=== PATIENT | male | born 1940 | race Caucasian/White ===

== ENCOUNTER 2016-05-29 06:16 | Outpatient (CLI) | payer MEDICARE, OTHER ==
[~2016-05-29] VITALS: Ht 185.4 cm; Wt 99.2 kg
[~2016-05-29 06:16] MED LIST: ASP325TEC PO; ASP81TEC PO; ATEN25TA PO; ATOR40TA70 PO; BUPR-168 PO; CLOP75TA69 PO; DOCU100T2 PO; FENO200C PO; FERR240T9 PO; HYDR1TAB66 PO; ISM30TCR PO; ISM60TCR PO; LEVO25TA5 PO; LIPA1CAP2 PO; LVT.15T PO; MULT1CAP27 PO; NTR.4SL SL; PANT20TA3 PO; RABE20TA PO; RANO10003 PO; RANO500T2 PO; SIMV40TA4 PO; UBID100C17 PO; [UNRECOGNIZED DRUG - CODE] PO; levothyroxine PO
--- OUTSIDE RECORDS SUMMARY | 2016-05-29 06:20 | XMS REPORT | Continuity of Care Document ---
Author Author [facility] Organization [facility] Address Unknown Phone Unavailable Care Team Providers Care Sales Applications Engineer Name Role Phone Self, Referral PCP Unavailable Source Comments Some departments are not documenting in the electronic medical record. If you do not see the information that you expected, contact Release of Information in the Health Information Management department at [phone] for further assistance in locating additional records.[facility] Active Allergies and Adverse Reactions No Known Allergies Current Medications Prescription Sig. Disp. Refills Start End Date Status Date isosorbide mononitrate SR Take 60 mg by mouth every Active (IMDUR) 60 mg tablet morning. atenolol (TENORMIN) 25 mg Take 25 mg by mouth Active tablet daily. RABEprazole DR (+) Take 20 mg by mouth Active (ACIPHEX) 20 mg tablet daily. ranolazine (RANEXA) 500 Take 500 mg by mouth Active mg twice daily. levothyroxine (SYNTHROID) Take 150 mcg by mouth Active 150 mcg tablet daily. simvastatin (ZOCOR) 40 mg Take 40 mg by mouth at Active tablet bedtime daily. fenofibrate micronized(+) Take 200 mg by mouth Active (TRICOR) 200 mg capsule every morning. pancrelipase (CREON 5) Take 2 Caps by mouth Active 124 mg (5,000- 18.7K-16K three times daily with unit) CpDR meals. And at bedtime nitroglycerin (NITROSTAT) Place 0.4 mg under tongue Active 0.4 mg tablet every 5 minutes as needed. up to 3 times. If having chest pain after 3rd dose call 911 or go to nearest ER. MULTIVITAMIN PO Take 1 Tab by mouth Active daily. [place]-3 Fatty Take 1 Cap by mouth Active Acids-Vitamin E (FISH daily. OIL) 1,000 mg cap aspirin EC 81 mg tablet Take 1 Tab by mouth 90 Tab 3 07/09/19 Active daily. 13 clopiDOGrel (PLAVIX) 75 Take 1 Tab by mouth 30 Tab 11 07/09/19 Active mg tablet daily. 13 varenicline (CHANTIX Take 0.5 mg by mouth 60 Tab 0 07/09/19 Active STARTING MONTH BOX) 0.5 daily for 3 days, then 13 (11)-1 (42) mg tablet increase to 0.5 mg by mouth twice daily for 4 days, then increase to 1 mg by mouth twice daily varenicline (CHANTIX Take 1 Tab by mouth twice 180 Tab 0 07/09/19 Active CONTINUING MONTH BOX) 1 daily. 13 mg tablet Active Problems Problem Noted Date Anginal pain (HCC) 08/10/2012 S/P CABG (coronary artery bypass graft) 08/10/2012 Overview: CABG x 4: DE PAZ-LAD, SVG-DIAG, SVG-OM1 and OM2. Tobacco abuse 08/10/2012 HTN (hypertension) 08/10/2012 Dyslipidemia 08/10/2012 CAD (coronary artery disease) Overview: CABG x 4: DE PAZ-LAD, SVG-DIAG, SVG-OM1 and OM2. 2010- Cardiac catheterization: 2 bypass grafts occluded. 05/26/12- Cardiac catheterization (Via Jessica): Totally occluded mid circumflex artery, First OM, second OM & RCA. Totally occluded proximal LAD excellent flow through the LAD system via the DE PAZ-LAD and a patent vein graft to the circumflex to the diagonal artery. Patent stent in the mid vein graft. EF 50%. 08/10/12: Unsuccessful attempt to open AUTOMATIC LEHR OPERATOR of CFX by Dr. Yuan Tobacco use disorder Hypertension Hyperlipidemia Social History Tobacco Use Types Packs/Day Years Used Date Current Every Day Smoker Cigarettes Last Filed Vital Signs Vital Sign Reading Time Taken Blood Pressure 146/73 08/10/2012 8:15 PM CDT Pulse 48 08/10/2012 8:00 PM CDT Temperature 36.5 C (97.7 F) 08/10/2012 8:15 PM CDT Respiratory Rate - - Height 1.854 m (6' 1") 08/10/2012 8:56 AM CDT Weight 99.7 kg (219 lb 12.8 oz) 08/10/2012 8:56 AM CDT Body Mass Index 29.01 08/10/2012 8:56 AM CDT Oxygen Saturation 97% 08/10/2012 8:15 PM CDT Plan of Care Health Maintenance Due Date Last Done Comments Physical (Comprehensive) 10/14/1947 Exam Pertussis Vaccine 10[birth year]14/1951 Tetanus Vaccine 1957 Colorectal Cancer 1990 Screening Shingles Vaccine 2000 Prevnar/Pneumovax (#1) 2005 Influenza Vaccine 01/03/2016 Results from Last 3 Months Not on file
[2016-05-29] MEDS ORDERED: PANT40TA3 PO (13:56)
[2016-05-29] MEDS ORDERED: ATOR80TA76 PO (13:56)
[2016-05-29] MEDS ORDERED: SUCR1TAB36 PO (13:56)
[2016-05-29] MEDS ORDERED: ATEN50TA PO (13:56)
[2016-05-29] MEDS ORDERED: RANO10003 PO (13:56)
== END 2016-05-29 14:00 ==
LOC: PREOP 06:16
PROVIDERS: ATTEND Surgery
DX: Z01.818 Encounter for other preprocedural examination (principal); K21.9 Gastro-esophageal reflux disease without esophagitis

== ENCOUNTER 2016-06-02 10:44 | Day surgery (SDC) | payer MEDICARE, OTHER ==
[~2016-06-02] VITALS: Ht 185.4 cm; Wt 99.2 kg
[~2016-06-02 10:44] MED LIST changes: +ATEN50TA PO; +ATOR80TA76 PO; +PANT40TA3 PO; +SUCR1TAB36 PO
--- OUTSIDE RECORDS SUMMARY | 2016-06-02 10:48 | XMS REPORT | Continuity of Care Document ---
Author Author [facility] Organization [facility] Address Unknown Phone Unavailable Care Team Providers Care Cargo Tank Mechanic Name Role Phone Self, Referral PCP Unavailable Source Comments Some departments are not documenting in the electronic medical record. If you do not see the information that you expected, contact Release of Information in the Health Information Management department at [phone] for further assistance in locating additional records.[facility] Active Allergies and Adverse Reactions No Known [...] Take 1 Tab by mouth Active daily. [place]-3 Fatty Take 1 Cap by mouth Active [...] EF 50%. 08/10/12: Unsuccessful attempt to open FORESTRY PILOT of CFX by Dr. Yuan Tobacco use [...]
--- OUTSIDE RECORDS SUMMARY | 2016-06-02 10:48 | XMS REPORT | Continuity of Care Document ---
Author Author [facility] Organization [facility] Address Unknown Phone Unavailable Care Team Providers Care Camera Supervisor Name Role Phone Self, Referral PCP Unavailable Source Comments Some departments are not documenting in the electronic medical record. If you do not see the information that you expected, contact Release of Information in the Health Information Management department at [phone] for further assistance in locating additional records.[facility] Active Allergies and Adverse Reactions [...] Take 1 Tab by mouth Active daily. [place]-3 Fatty Take 1 Cap by mouth Active [...] EF 50%. 08/10/12: Unsuccessful attempt to open MECHANIC MARINE ENGINE of CFX by Dr. Yuan Tobacco use [...]
[2016-06-02 10:50] VITALS: BP 169/90
[2016-06-02] MEDS ORDERED: NALOXONE 0.4 MG/ML 1 ML (NARCAN) VIAL IVP PRN (11:00)
[2016-06-02] MEDS ORDERED: NS IV 500 ML 500 ML IV PRN (11:00)
[2016-06-02] MEDS ORDERED: HURRICAINE EXT TUBE (BENZOCAINE) XX PRN (11:00)
[2016-06-02] MEDS ORDERED: FLUMAZENIL (ROMAZICON) 0.1 MG/ML 5 ML VIAL INJ PRN (11:00)
--- NOTE | 2016-06-02 11:33 | Pre-Op Note & Conscious Sedat ---
Pre-Operative Progress Note H&P Reviewed The H&P was reviewed, patient examined and no changes noted. Date H&P Reviewed: Jun 02, 2016 Time H&P Reviewed: 11:32 Pre-Op Diagnosis: GERD Conscious Sedation Pre-Proced ASA Class: 2 Airway Mallampati Classification: ([place] appropriate class) I. II. III, IV Lungs Heart ASA score ASA 1: a normal healthy patient ASA 2: a patient with a mild systemic disease (mid diabetes, controlled hypertension, obesity ASA 3: a patient with a severe systemic disease that limits activity (angina , COPD, prior Myocardial infarction) ASA 4: a patient with an incapacitating disease that is a constant threat to life (CHF, renal failure) ASA 5: a moribund patient not expected to survive 24 hrs. (ruptured aneurysm) ASA 6: a declared brain patient whose organs are being harvested. For emergent operations, add the letter E after the classification Grade 2 Sedation Plan: Discussed options with patient/fam Note The patient is an appropriate candidate to undergo the planned procedure, sedation, and anesthesia. The patient immediately re-assessed prior to indication. RENEE MEADE MD Jun 02, 2016 11:33 am
[2016-06-02] MEDS: fentaNYL INJECTION 100 MCG/2 ML AMP IVP PRN ×2 (12:15→12:18)
[2016-06-02] MEDS: MIDAZOLAM 2 MG/2 ML (VERSED) VIAL IVP PRN ×2 (12:16→12:19)
[2016-06-02] MEDS ORDERED: fentaNYL INJECTION 100 MCG/2 ML AMP ONE (12:18)
[2016-06-02] MEDS ORDERED: MIDAZOLAM 2 MG/2 ML (VERSED) VIAL ONE ×3 (12:18)
[2016-06-02] MEDS ORDERED: HURRICAINE EXT TUBE (BENZOCAINE) ONE (12:18)
--- NOTE | 2016-06-02 12:31 | Discharge Inst-Simple/Standard ---
Discharge Inst-Standard Discharge Medications New, Converted or Re-Newed RX: Other Patient Instructions/Follow Up Plan of Care/Instructions/FU: follow-up with his primary Activity as Tolerated: Yes Discharge Diet: No Restrictions RENEE EMADE MD Jun 02, 2016 12:31 pm
--- NOTE | 2016-06-02 12:31 | Progress Note-Post Operative ---
Post-Operative Progess Note Pre-Operative Diagnosis GERD Post-Operative Diagnosis tortuous esophagus with grade 2 esophagitis Diffuse gastritis and duodenitis Post-Op Procedure Note Date of Procedure: Jun 02, 2016 Name of Procedure: EGD Anesthesia Type sedation RENEE MEADE MD Jun 02, 2016 12:31 pm
[2016-06-02 12:50] VITALS: BP 144/79
[2016-06-02 13:10] VITALS: BP 142/78
[2016-06-02 13:15] VITALS: BP 142/78
--- NOTE | 2016-06-02 13:19 | PROCEDURE REPORT ---
PROCEDURE PHYSICIAN: RENEE MEADE DATE OF PROCEDURE: 06/02/2016 PROCEDURE: Upper GI endoscopy. SURGEON: Enio INDICATION FOR THE PROCEDURE: This gentleman came for an upper endoscopy for an upper endoscopy to evaluate symptoms of reflux disease. Informed consent was obtained after reviewing the procedure in detail. DESCRIPTION OF PROCEDURE: He was placed in left lateral decubitus position and his vital signs were monitored. Conscious sedation was achieved using Versed and fentanyl. Due to coronary artery intervention, it is felt appropriate to continue antiplatelet therapy. The flexible gastroscope was introduced down the esophagus, past the stomach, into the proximal duodenum. FINDINGS: ESOPHAGUS: Quite tortuous with grade II esophagitis at the distal end. STOMACH: Diffuse gastritis, more pronounced over the distal end. DUODENUM: Changes of duodenitis were found along the first part. Due to her antiplatelet therapy, biopsy was avoided. He tolerated the procedure well and was taken back to the nursing area in a stable condition. IMPRESSION: 1. Symptoms of reflux disease. 2. Esophagitis and diffuse gastritis. Job ID: [id number] Dictated Date: 06/02/2016 12:30:15 Slurry Worker Date: 06/02/2016 13:14:18 / jessica NG
== END 2016-06-02 13:15 | disposition home or self-care (01) ==
LOC: ENDO 10:44
PROVIDERS: ATTEND Surgery
DX: K20.9 Esophagitis, unspecified (principal); K29.70 Gastritis, unspecified, without bleeding; Z79.02 Long term (current) use of antithrombotics/antiplatelets

== ENCOUNTER → 2016-10-02 | Outpatient (CLI) | payer MEDICARE, OTHER | LOC: CARD 11:11 | PROVIDERS: ATTEND Internal Medicine Cardiovascular Disease | DX: I25.10 Atherosclerotic heart disease of native coronary artery without angina pectoris (principal); E78.2 Mixed hyperlipidemia; R06.02 Shortness of breath | CPT/HCPCS: 93306 ==

== ENCOUNTER → 2019-05-17 | Outpatient (CLI) | payer MEDICARE, OTHER ==
[~2019-05-17] MED LIST changes: +FERR240T15 PO; -FERR240T9 PO
== END ==
LOC: CARD 09:08
PROVIDERS: ATTEND Physician Assistant
DX: I25.10 Atherosclerotic heart disease of native coronary artery without angina pectoris (principal); I65.23 Occlusion and stenosis of bilateral carotid arteries; I11.9 Hypertensive heart disease without heart failure; I35.0 Nonrheumatic aortic (valve) stenosis; I34.0 Nonrheumatic mitral (valve) insufficiency
CPT/HCPCS: 93306

== ENCOUNTER → 2020-07-09 | Outpatient (CLI) | payer OTHER ==
[~2020-07-09] MED LIST changes: -ISM60TCR PO; +ISOS60TA63 PO; +PANT20TA18 PO; -PANT20TA3 PO; -PANT40TA3 PO; +PANT40TA52 PO
== END ==
LOC: LABNPT 08:12
PROVIDERS: ATTEND Internal Medicine Gastroenterology
DX: Z20.822 Contact with and (suspected) exposure to COVID-19 (principal)
CPT/HCPCS: 87635

== ENCOUNTER → 2020-07-18 | Outpatient (CLI) | payer OTHER | LOC: CARD 09:05 | PROVIDERS: ATTEND Internal Medicine Cardiovascular Disease | DX: I11.9 Hypertensive heart disease without heart failure (principal); I08.0 Rheumatic disorders of both mitral and aortic valves | CPT/HCPCS: 93306 ==

== ENCOUNTER 2020-09-04 08:29 | Emergency (ER) | payer MEDICARE, OTHER ==
[~2020-09-04] VITALS: Ht 185.4 cm; Wt 74.5 kg
[2020-09-04] MEDS ORDERED: LIDOCAINE 1% INJ 20 ML 20 ML VIAL ONE (09:22)
--- NOTE | 2020-09-04 09:24 | ED Upper Extremity ---
General Chief Complaint: Laceration Stated Complaint: L PINKY LAC Nursing Triage Note: AMB TO ED WITH LACERATION TO L 5HT FINGER CUT YESTERDAY . FLAP TYPE LACERATION NOTED TO FINGER. Nursing Sepsis Screen: No Definite Risk Source: patient Exam Limitations: no limitations (LEONIDES FLORES STUDENT) History of Present Illness Date Seen by Provider: September 04, 2020 Time Seen by Provider: 08:45 Initial Comments Pt presents to ED from home with complaints of laceration w/ continuous bleeding from his L 5th digit. He states that last night he was using chisels to work on his vehicle when it slipped and cut his finger. He washed it out with peroxide and used bandages, but the bleeding continued into this morning. Has not used or needed pain medication. He has an extensive medical/surgical history and takes apixaban and aspirin. Denies pain to his hand, chest pain, abd pain, fevers/chills, SOB, N/V. States he would like to have his finger repaired and bleeding stopped, with no other questions/concerns. Location Injury Occurred: Home Onset: yesterday Pain/Injury Location: left 5th finger Method of Injury: other (chisel slipped and lacerated finger) (LEONIDES FLORES STUDENT) Allergies and Home Medications Allergies Coded Allergies: No Known Drug Allergies (Unverified , 09/19/11) Home Medications Aspirin 81 Mg Tabec, 81 MG PO DAILY, (Reported) Atenolol 50 Mg Tablet, 50 MG PO DAILY, (Reported) Atorvastatin Calcium 80 Mg Tablet, 80 MG PO DAILY, (Reported) Bupropion HCl 75 Mg Tablet, 75 MG PO BID, (Reported) Clopidogrel Bisulfate 75 Mg Tablet, 75 MG PO DAILY, (Reported) Docusate Sodium 100 Mg Tablet, 300 MG PO TID, (Reported) take 3 (100mg) tab Ferrous Gluconate 240 Mg Tablet, 120 MG PO HS, (Reported) take 1/2 of 240mg tab Isosorbide Mononitrate 60 Mg Tab, 60 MG PO DAILY, (Reported) Levothyroxine Sodium 25 Mcg Tablet, 25 MCG PO HS, (Reported) Lipase/Protease/Amylase 1 Each Capsule.dr, 2,400 UNITS PO TID, (Reported) take 2 (1200mg)tabs Multivitamins 1 Each Capsule, 1 TAB PO DAILY, (Reported) Nitroglycerin 0.4 Mg Subl, 0.4 MG SL NEEDED PRN, (Reported) PRN CHEST PAIN Pantoprazole Sodium 40 Mg Tablet.dr, 40 MG PO DAILY, (Reported) Ranolazine 1,000 Mg Tab.er.12h, 1,000 MG PO BID, (Reported) Sucralfate 1 Gm Tablet, 1 GM PO TID, (Reported) Ubidecarenone 100 Mg Capsule, 100 MG PO HS, (Reported) Patient Home Medication List Home Medication List Reviewed: Yes (LEONIDES FLORES) Review of Systems Constitutional: No chills, No dizziness, No fever EENTM: No hearing loss, No vision loss Respiratory: No cough, No short of breath Cardiovascular: No chest pain, No edema Gastrointestinal: No abdominal pain, No constipation, No diarrhea Genitourinary: No dysuria, No hematuria Musculoskeletal: No back pain, No joint pain, No muscle pain Psychiatric/Neurological: Denies Headache, Denies Numbness, Denies Paresthesia (LEONIDES FLORES) All Other Systems Reviewed Negative Unless Noted: Yes (LEONIDES FLORES) Past Exesspf-Tsranb-Ponsjp Hx Past Med/Social Hx: Reviewed Nursing Past Med/Soc Hx (LEONIDES FLORES) Patient Social History Alcohol Use: Past History Smoking Status: Former Smoker Type Used: Cigarettes Recent Infectious Disease Expo: No Recent Hopitalizations: No (LEONIDES FLORES) Immunizations Up To Date Tetanus Booster (TDap): More than 5yrs Date of Pneumonia Vaccine: Mar 15, 2013 Date of Influenza Vaccine: Feb 02, 2016 (LEONIDES FLORES) Seasonal Allergies Seasonal Allergies: No (LEONIDES FLORES) Past Medical History Surgeries: Yes (left ankle sx, Quad bypass, 3 stents, hernia repair x2 after pancreas sx) Abdominal, Gallbladder, Pancreatic Respiratory: No Cardiac: Yes (QUAD. BY-PASS; STENTS X3) Coronary Artery Disease, Hypertension Neurological: No Reproductive Disorders: No Gastrointestinal: Yes (HX. OF HERNIA SURGERY) Gastroesophageal Reflux, Chronic Constipation Musculoskeletal: Yes Arthritis Endocrine: Yes Hypothyroidsim Loss of Vision: Denies Hearing Impairment: Denies Cancer: No Psychosocial: No Integumentary: No Blood Disorders: No (LEONIDES FLORES) Physical Exam Vital Signs Vital Signs - First Documented 09/04/20 08:37 Temp 36.7 Pulse 63 Resp 18 B/P (MAP) 174/86 (115) Pulse Ox 94 O2 Delivery Room Air (LUISA CRANDALL) Vital Signs Capillary Refill : Less Than 3 Seconds (LEONIDES FLORES Loudeye STUDENT) Height, Weight, BMI Height: 6'1.00" Weight: 218lbs. 9.6oz. 99.975733ko; 21.00 BMI Method:Stated General Appearance: WD/WN, no apparent distress, thin HEENT: PERRL/EOMI, normal ENT inspection Neck: non-tender, full range of motion, normal inspection Cardiovascular: regular rate, rhythm, no edema Respiratory: chest non-tender, lungs clear, normal breath sounds, no respiratory distress, no accessory muscle use Gastrointestinal: normal bowel sounds, non tender, soft Back: normal inspection, no CVA tenderness Shoulder: normal inspection, no evidence of injury Elbow/Forearm: normal inspection, no evidence of injury Wrist: Yes normal inspection, Yes no evidence of injury Hand: laceration (laceration to tip of 5th digit L hand with continuous mildly oozing blood) Neurologic/Tendon: normal sensation, normal motor functions Neurologic/Psychiatric: no motor/sensory deficits, alert, normal mood/affect, oriented x 3 Skin: normal color, warm/dry Lymphatic: no adenopathy (LEONIDES FLORES STUDENT) Procedures/Interventions Wound Location: Upper Extremities (L 5th digit) Wound Length (cm): 2 Wound's Depth, Shape: superficial, linear Irrigated w/ Saline (ccs): 10 Anesthesia: 1% Lidocaine Wound Debrided: moderate Suture: Ethlion Suture Size: 5-0 Number of Sutures: 5 Sterile Dressing Applied?: Yes (LEONIDES FLORES Loudeye STUDENT) Other Wound Location Left fifth finger distal phalanx below the nail Wound Explored: no foreign body removed Irrigated w/ Saline (ccs): 100 Volume Anesthetic (ccs): 2 Wound Debrided: minimal Layer Closure?: 1 (LUISA CRANDALL) Progress/Results/Core Measures Results/Orders My Orders Orders - LUISA CRANDALL Lidocaine 1% Inj 20 Ml (Xylocaine 1% Inj (09/04/20 09:30) Lidocaine 1% Inj 20 Ml (Xylocaine 1% Inj (09/04/20 09:22) (LUISA CRANDALL) Vital Signs/I&O 09/04/20 08:37 Temp 36.7 Pulse 63 Resp 18 B/P (MAP) 174/86 (115) Pulse Ox 94 O2 Delivery Room Air (LUISA CRANDALL) Blood Pressure Mean: 115 Progress Progress Note : Time: 10:06 Progress Note I attest that I saw this patient alongside the medical student and agree with his documented history, physical exam and review of systems except as otherwise noted. Wound is less than 24 hours was thoroughly cleaned we will give him a tetanus vaccination and put him on some outpatient antibiotics after closing it with simple interrupted sutures. (LUISA CRANDALL) Departure Impression Primary Impression: Laceration Disposition: HOME, SELF-CARE Condition: Improved Departure-Patient Inst. Decision time for Depature: 09:35 (LUISA CRANDALL) Referrals: MANDO RUBY (PCP/Family) Primary Care Physician Patient Instructions: Laceration Repair With Stitches (DC) Add. Discharge Instructions: Keflex 500mg take 1 tablet 3 times a day for the next 5 days with food to prevent infection. Return to ER for increasing discharge, redness going up your hand or arm or fever. Tylenol 1000mg every 8 hours as necessary for pain. Elevate your arm to reduce pain and swelling. Keep the wound clean with regular soap and water only. Change the dressing daily or more frequently if it becomes soiled. Keep dirt and standing water out of it. Do not wash dishes or submerse your hand in baths. Showers are acceptable. Return to the ER in 7 to 10 days to have the sutures removed. All discharge instructions reviewed with patient and/or family. Voiced understanding. Scripts Cephalexin (Cephalexin) 500 Mg Tablet 500 MG PO TID for 5 Days, #15 TAB 0 Refills Prov: LUISA CRANDALL 09/04/20 LEONIDES FLORES MED STUDENT September 04, 2020 09:24 LUISA CRANDALL September 04, 2020 10:11
[2020-09-04] MEDS ORDERED: CEPH500T PO (10:11)
[2020-09-04 10:12] VITALS: BP 174/86
[2020-09-04] MEDS: LIDOCAINE 1% INJ 20 ML 20 ML VIAL INJ ONE ×2 (10:12→15:00)
== END 2020-09-04 10:12 | disposition home or self-care (01) ==
LOC: EDUNIT# 08:29 → ER 08:31
DX: S61.217A Laceration without foreign body of left little finger without damage to nail, initial encounter (principal); I10 Essential (primary) hypertension; K21.9 Gastro-esophageal reflux disease without esophagitis; E03.9 Hypothyroidism, unspecified; Z87.891 Personal history of nicotine dependence; Z79.82 Long term (current) use of aspirin; Z79.899 Other long term (current) drug therapy; Z79.890 Hormone replacement therapy; W01.0XXA Fall on same level from slipping, tripping and stumbling without subsequent striking against object, initial encounter
CPT/HCPCS: 12001

== ENCOUNTER 2020-09-17 06:48 | Emergency (ER) | payer MEDICARE, OTHER ==
[~2020-09-17] VITALS: Ht 185 cm; Wt 75.0 kg
[~2020-09-17 06:48] MED LIST changes: +CEPH500T PO
[2020-09-17 06:54] VITALS: BP 165/49
== END 2020-09-17 07:00 | disposition home or self-care (01) ==
LOC: EDUNIT# 06:48 → ER 06:50
DX: S61.217D Laceration without foreign body of left little finger without damage to nail, subsequent encounter (principal); X58.XXXD Exposure to other specified factors, subsequent encounter

== ENCOUNTER 2021-01-31 13:39 | Outpatient (RCR) | payer OTHER | END 2021-01-31 14:35 | disposition home or self-care (01) | PROVIDERS: ATTEND Nurse Practitioner | DX: R26.89 Other abnormalities of gait and mobility (principal); I11.9 Hypertensive heart disease without heart failure; R53.1 Weakness; R63.4 Abnormal weight loss ==

== ENCOUNTER 2021-04-29 09:22 | Observation (INO) | payer OTHER ==
[~2021-04-29] VITALS: Ht 186 cm; Wt 74.0 kg
[2021-04-29] MEDS ORDERED: TETANUS,DIPTH,PERTUSS P/F (BOOSTRIX) 0.5 ML VIAL IM ONE (10:45)
--- NOTE | 2021-04-29 10:50 | ED Fall/Injury ---
General Chief Complaint: Trauma-Non Activation Stated Complaint: R THUMB DISLOCATION, L EYE LAC FELL Nursing Triage Note: PT STATES HE FELL IN HIS DRIVEWAY ON [place], UNKNOWN REASON WHY HE FELL, CC OF LAC ABOVE LT EYE, RT THUMB DISLOCATION, CUTS AND SCRATCHES ON HANDS. NOT WITNESSED, DOESN'T THINK HE LOST CONSCIOUSNESS. 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 Pt states he was out on his gravel driveway by his truck and fell, but is unsure if he had any preceding symptoms such as light-headedness. States everything happened so fast, says all he remembers is getting up off the ground. Unsure if he lost consciousness, but did hit his head. Takes Eliquis due to history of coronary stents. Also notes that his right thumb was out of place, but thinks it is back in place now. Able to ambulate after the fall and is not complaining of any pain. Says he is fine and would not have come in, but his sister who lives with him brought him in. Unsure of tetanus status. Occurred: just prior to arrival Context: unknown Loss of Consciousness: unsure (GLENNA RODRIGUEZ MED STUDENT) Initial Comments 80-year-old male with a chief complaint of syncope while standing outside today. I have reviewed and agree with the medical students HPI as above as well as physical exam (DANIELLE ASHER MD) Allergies and Home Medications Allergies Coded Allergies: No Known Drug Allergies (Unverified , 09/19/11) Patient Home Medication List Home Medication List Reviewed: Yes (DANIELLE ASHER MD) Apixaban (Eliquis) 5 Mg Tablet, 5 MG PO BID, (Reported) Entered as Reported by: BRIGHT HORTON on 04/29/211628 Last Action: Continued Aspirin (Aspirin EC) 81 Mg Tablet.dr, 81 MG PO DAILY, (Reported) Entered as Reported by: BRIGHT HORTON on 04/29/211628 Last Action: Continued Atorvastatin Calcium (Atorvastatin Calcium) 40 Mg Tablet, 20 MG PO HS, (Reported) Entered as Reported by: IVET HERNANDEZ on 04/30/211931 Cyanocobalamin (Vitamin B-12) (Vitamin B-12) 1,000 Mcg Tablet, 1,000 MCG PO DAILY, (Reported) Entered as Reported by: BRIGHT HORTON on 04/29/211628 Last Action: Held Famotidine (Famotidine) 40 Mg Tablet, 40 MG PO BID, (Reported) Entered as Reported by: BRIGHT HORTON on 04/29/211628 Last Action: Held Ferrous Sulfate (Iron) 325 Mg Tablet, 162.5 MG PO HS, (Reported) Entered as Reported by: BRIGHT HORTON on 04/29/211628 Last Action: Held Gabapentin (Neurontin) 300 Mg Capsule, 300 MG PO HS, (Reported) Entered as Reported by: BRIGHT HORTON on 04/29/211628 Last Action: Continued Isosorbide Mononitrate (Isosorbide Mononitrate ER) 60 Mg Tab, 60 MG PO DAILY, (Reported) Entered as Reported by: BRIGHT HORTON on 04/29/211628 Last Action: Continued Ketoconazole (Ketoconazole) 15 Gm Cream..g., 1 APPLIC TP TWICE WEEKLY, (Reported) Entered as Reported by: BRIGHT HORTON on 04/29/211628 Last Action: Held Levothyroxine Sodium (Levothyroxine Sodium) 200 Mcg Tablet, 200 MCG PO DAILY, (Reported) Entered as Reported by: BRIGHT HORTON on 04/29/211628 Last Action: Converted Lisinopril (Lisinopril) 20 Mg Tablet, 10 MG PO DAILY, (Reported) Entered as Reported by: BRIGHT HORTON on 04/29/211628 Last Action: Continued Multivitamin (Multivitamin) 1 Each Tablet, 1 EACH PO HS, (Reported) Entered as Reported by: BRIGHT HORTON on 04/29/211628 Last Action: Held Pantoprazole Sodium (Pantoprazole Sodium) 40 Mg Tablet.dr, 40 MG PO BID, (Reported) Entered as Reported by: BRIGHT HORTON on 04/29/211628 Last Action: Continued Polyethylene Glycol 3350 (Miralax) 17 Gm Powd.pack, 17 GM PO DAILY, (Reported) Entered as Reported by: BRIGHT HORTON on 04/29/211628 Last Action: Held Ranolazine (Ranexa) 1,000 Mg Tab.er.12h, 1,000 MG PO Q12H, (Reported) Entered as Reported by: BRIGHT HORTON on 04/29/211628 Last Action: Converted Zolpidem Tartrate (Zolpidem Tartrate) 5 Mg Tablet, 5 MG PO HS, (Reported) Entered as Reported by: BRIGHT HORTON on 04/29/211628 Last Action: Continued Discontinued Medications Aspirin (Aspirin Ec 81 Mg) 81 Mg Tabec, 81 MG PO DAILY, (Reported) Discontinued Reason: No Longer Taking Entered as Reported by: SHARAD CERDA on 05/26/12 1432 Last Action: Discontinued Atenolol (Atenolol) 50 Mg Tablet, 50 MG PO DAILY, (Reported) Discontinued Reason: No Longer Taking Entered as Reported by: ANGELI VERA on 05/29/16 1356 Last Action: Discontinued Atenolol (Atenolol) 50 Mg Tablet, 25 MG PO HS, (Reported) Discontinued Reason: Provider Change Entered as Reported by: BRIGHT HORTON on 04/29/211628 Last Action: Held Atorvastatin Calcium (Atorvastatin Calcium) 80 Mg Tablet, 80 MG PO DAILY, (Reported) Discontinued Reason: No Longer Taking Entered as Reported by: ANGELI VERA on 05/29/16 1356 Last Action: Discontinued Bupropion HCl (Bupropion HCl) 75 Mg Tablet, 75 MG PO BID, (Reported) Discontinued Reason: No Longer Taking Entered as Reported by: ANGELI VERA on 10/11/15 1103 Last Action: Discontinued Cephalexin (Cephalexin) 500 Mg Tablet, 500 MG PO TID Discontinued Reason: No Longer Taking Prescribed by: LUISA CRANDALL on 09/04/20 1011 Last Action: Discontinued Clopidogrel Bisulfate (Plavix) 75 Mg Tablet, 75 MG PO DAILY, (Reported) Discontinued Reason: No Longer Taking Entered as Reported by: ANGELI VERA on 10/11/15 1103 Last Action: Discontinued Docusate Sodium (Docusate Sodium) 100 Mg Tablet, 300 MG PO TID, (Reported) Discontinued Reason: No Longer Taking Entered as Reported by: ANGELI VERA on 10/11/15 110 Last Action: Discontinued Ferrous Gluconate (Iron) 240 Mg Tablet, 120 MG PO HS, (Reported) Discontinued Reason: No Longer Taking Entered as Reported by: ANGELI VERA on 10/11/15 1111 Last Action: Discontinued Isosorbide Mononitrate (Isosorbide Mononitrate ER) 60 Mg Tab, 60 MG PO DAILY, (Reported) Discontinued Reason: No Longer Taking Entered as Reported by: ANGELI VERA on 10/11/15 1103 Last Action: Discontinued Levothyroxine Sodium (Levothyroxine Sodium) 25 Mcg Tablet, 25 MCG PO HS, (Reported) Discontinued Reason: No Longer Taking Entered as Reported by: ANGELI VERA on 10/11/15 1111 Last Action: Discontinued Lipase/Protease/Amylase (Creon Dr 12,000 Units Capsule) 1 Each Capsule.dr, 2,400 UNITS PO TID, (Reported) Discontinued Reason: No Longer Taking Entered as Reported by: ANGELI VERA on 10/11/15 1111 Last Action: Discontinued Multivitamins (Multivitamins) 1 Each Capsule, 1 TAB PO DAILY, (Reported) Discontinued Reason: No Longer Taking Entered as Reported by: SHARAD CERDA on 05/26/12 1419 Last Action: Discontinued Nitroglycerin (Nitrostat) 0.4 Mg Subl, 0.4 MG SL NEEDED PRN, (Reported) Discontinued Reason: No Longer Taking Entered as Reported by: COCO PEREZ on 12/21/11 0534 Last Action: Discontinued Pantoprazole Sodium (Pantoprazole Sodium) 40 Mg Tablet., 40 MG PO DAILY, (Reported) Discontinued Reason: No Longer Taking Entered as Reported by: ANGELI VERA on 05/29/16 1356 Last Action: Discontinued Ranolazine (Ranexa) 1,000 Mg Tab.er.12h, 1,000 MG PO BID, (Reported) Discontinued Reason: No Longer Taking Entered as Reported by: ANGELI VERA on 10/11/15 1103 Last Action: Discontinued Sucralfate (Carafate) 1 Gm Tablet, 1 GM PO TID, (Reported) Discontinued Reason: No Longer Taking Entered as Reported by: ANGELI VERA on 05/29/16 1356 Last Action: Discontinued Ubidecarenone (Coq-10) 100 Mg Capsule, 100 MG PO HS, (Reported) Discontinued Reason: No Longer Taking Entered as Reported by: ANGELI VERA on 10/11/15 1111 Last Action: Discontinued Review of Systems Review of Systems Constitutional: No chills, No fever Eyes: Denies Blurred Vision, Denies Vision Changes Ears, Nose, Mouth, Throat: denies ear pain, denies ear discharge Respiratory: No cough, No dyspnea on exertion Cardiovascular: see HPI; No chest pain; vascular heart diseas Gastrointestinal: No abdominal pain, No vomiting Genitourinary: no symptoms reported Musculoskeletal: see HPI; No back pain, No neck pain Skin: no symptoms reported Psychiatric/Neurological: See HPI; Denies Headache, Denies Numbness (GLENNA RODRIGUEZ MED STUDENT) All Other Systems Reviewed Negative Unless Noted: Yes (Negative excepted noted.) (GLENNA RODRIGUEZ MED STUDENT) Past Gurhttv-Mzmonh-Uqlcbt Hx Patient Social History Tobacco Use?: Yes Tobacco type used: Cigarettes Smoking Status: Former Smoker Substance use?: Yes Substance type: Marijuana Alcohol Use?: Yes Alcohol type: Hard Liquor Alcohol Frequency: Rarely (GLENNA RODRIGUEZ MED STUDENT) Immunizations Up To Date Tetanus Booster (TDap): More than 5yrs (GLENNA RODRIGUEZ MED STUDENT) Seasonal Allergies Seasonal Allergies: No (GLENNA RODRIGUEZ MED STUDENT) Past Medical History Surgeries: Yes (left ankle sx, Quad bypass, 3 stents, hernia repair x2 after pancreas sx) Abdominal, Gallbladder, Pancreatic Respiratory: No Cardiac: Yes (QUAD. BY-PASS; STENTS X3) Coronary Artery Disease, Hypertension Neurological: No Reproductive Disorders: No Gastrointestinal: Yes (HX. OF HERNIA SURGERY) Gastroesophageal Reflux, Chronic Constipation Musculoskeletal: Yes Arthritis Endocrine: Yes Hypothyroidsim Loss of Vision: Denies Hearing Impairment: Denies Cancer: No Psychosocial: No Integumentary: No Blood Disorders: No (GLENNA RODRIGUEZ MED STUDENT) Physical Exam Vital Signs Vital Signs - First Documented 04/29/21 09:37 Temp 36.5 Pulse 48 Resp 18 B/P (MAP) 136/72 (93) Pulse Ox 99 O2 Delivery Room Air (DANIELLE ASHER MD) Vital Signs Capillary Refill : Less Than 3 Seconds (GLENNA RODRIGUEZ MED STUDENT) Height, Weight, BMI Height: 6'1.00" Weight: 218lbs. 9.6oz. 99.512189ce; 21.00 BMI Method:Stated General Appearance: WD/WN, no apparent distress HEENT: PERRL/EOMI, normal ENT inspection, pharynx normal; No scleral icterus (R), No scleral icterus (L); other (dried blood in left nare, no nasoseptal hematoma; 1 cm left eyebrow laceration and underlying hematoma; no hemotympanum, Dominguez's sign, or Raccoon eyes; no tongue bite) Neck: non-tender, supple, normal inspection Cardiovascular: no edema, bradycardia, systolic murmur Respiratory: chest non-tender, lungs clear, normal breath sounds, no respiratory distress, no accessory muscle use Peripheral Pulses: 2+ Radial Pulses (R), 2+ Radial Pulses (L) Gastrointestinal: non tender, soft; No distended Back: no CVA tenderness, no vertebral tenderness Extremities: normal range of motion, no pedal edema, normal capillary refill, pelvis stable Neurologic/Psychiatric: no motor/sensory deficits, alert, normal mood/affect, oriented x 3 Skin: normal color, warm/dry (GLENNA RODRIGUEZ MED STUDENT) Skin: other (1 cm laceration, stellate left eyebrow, no active bleeding; 2 cm laceration flap dorsum right 2nd finger over PIP joint, no active bleeding; 2 cm laceration/avulsion tip of left 5th finger, does not involve the nail, but adjacent to - no active bleeding. multiple other small superficial abrasions bilateral hands) (DANIELLE ASHER MD) [place] Coma Score Best Eye Response: (4) Open Spontaneously Best Verbal Response: (5) Oriented Best Motor Response: (6) Obeys Commands (GLENNA RODRIGUEZ MED STUDENT) Procedures/Interventions Suture Size: 5-0 (GLENNA RODRIGUEZ STUDENT) Wound Location: Face (left eyebrow) Wound Length (cm): 1 Wound's Depth, Shape: superficial, irregular Wound Explored: clean Irrigated w/ Saline (ccs): 50 Betadine Prep?: Yes Anesthesia: Lidocaine w/ Epi Volume Anesthetic (ccs): 2 Suture: Prolene Suture Size: 5-0 Number of Sutures: 1 Layer Closure?: 1 Sterile Dressing Applied?: No Wound Location: Upper Extremities Other Wound Location Left fifth finger Wound Length (cm): 2 Wound's Depth, Shape: superficial, irregular Wound Explored: clean Irrigated w/ Saline (ccs): 50 Anesthesia: 1% Lidocaine Volume Anesthetic (ccs): 2 Suture: Prolene Suture Size: 5-0 Number of Sutures: 3 Layer Closure?: 1 Sterile Dressing Applied?: Yes Wound Location: Upper Extremities Other Wound Location Right hand second finger, tip Wound Length (cm): 2 Wound's Depth, Shape: into muscle, flap Wound Explored: clean Irrigated w/ Saline (ccs): 50 Anesthesia: 1% Lidocaine (Digital block) Volume Anesthetic (ccs): 2 Suture: Prolene Suture Size: 5-0 Number of Sutures: 4 Layer Closure?: 1 Number Deep Layer Sutures: 0 Sterile Dressing Applied?: Yes (DANIELLE ASHER MD) Progress/Results/Core Measures Results/Orders Lab Results Laboratory Tests Test 04/29/21 11:15 Range/Units White Blood Count 8.4 4.3-11.0 10^3/uL Red Blood Count 3.72 L 4.30-5.52 10^6/uL Hemoglobin 12.4 L 13.3-17.7 g/dL Hematocrit 38 L 40-54 % Mean Corpuscular Volume 102 H 80-99 fL Mean Corpuscular Hemoglobin 33 25-34 pg Mean Corpuscular Hemoglobin Concent 33 32-36 g/dL Red Cell Distribution Width 13.2 10.0-14.5 % Platelet Count 154 130-400 10^3/uL Mean Platelet Volume 10.4 9.0-12.2 fL Immature Granulocyte % (Auto) 1 % Neutrophils (%) (Auto) 77 H 42-75 % Lymphocytes (%) (Auto) 14 12-44 % Monocytes (%) (Auto) 6 0-12 % Eosinophils (%) (Auto) 2 0-10 % Basophils (%) (Auto) 1 0-10 % Neutrophils # (Auto) 6.4 1.8-7.8 10^3/uL Lymphocytes # (Auto) 1.2 1.0-4.0 10^3/uL Monocytes # (Auto) 0.5 0.0-1.0 10^3/uL Eosinophils # (Auto) 0.1 0.0-0.3 10^3/uL Basophils # (Auto) 0.0 0.0-0.1 10^3/uL Immature Granulocyte # (Auto) 0.1 0.0-0.1 10^3/uL Sodium Level 139 135-145 MMOL/L Potassium Level 4.3 3.6-5.0 MMOL/L Chloride Level 106 98-107 MMOL/L Carbon Dioxide Level 23 21-32 MMOL/L Anion Gap 10 5-14 MMOL/L Blood Urea Nitrogen 23 H 7-18 MG/DL Creatinine 1.32 H 0.60-1.30 MG/DL Estimat Glomerular Filtration Rate 52 BUN/Creatinine Ratio 17 Glucose Level 105 70-105 MG/DL Calcium Level 9.3 8.5-10.1 MG/DL (DANIELLE ASHER MD) My Orders Orders - DANIELLE ASHER MD Ed Iv/Invasive Line Start (04/29/21 10:39) Cbc With Automated Diff (04/29/21 10:39) Basic Metabolic Panel (04/29/21 10:39) Ekg Tracing (04/29/21 10:39) Ct Head Wo (04/29/21 10:39) Hand, Right, 3 Views (04/29/21 10:39) Dipht,Pertuss(Acell),Tet Adult (Boostrix (04/29/21 10:45) (DANIELLE ASHER MD) Medications Given in ED (DANIELLE ASHER MD) Vital Signs/I&O 04/29/21 04/29/21 09:37 11:45 Temp 36.5 37.0 Pulse 48 50 Resp 18 20 B/P (MAP) 136/72 (93) 109/59 (76) Pulse Ox 99 O2 Delivery Room Air Room Air (DANIELLE ASHER MD) Blood Pressure Mean: 93 Progress Progress Note : Time: 13:32 Progress Note Case discussed with Dr. Lundberg who recommends holding his metoprolol as well as an echocardiogram. I also discussed the case with Dr. Ivey who is on for cardiology. Patient has had sutures to the left eyebrow, right second finger and left fifth finger. (DANIELLE ASHER MD) Initial ECG Impression Date: Apr 29, 2021 Initial ECG Impression Time: 11:10 Initial ECG Rate: 48 Initial ECG Rhythm: S.Roger Initial ECG Intervals MN 327 QRS 113 QTc 441, no ST segment elevation, depression or ectopy is noted Initial ECG Impression: Sinus Bradycardia (DANIELLE ASHER MD) Diagnostic Imaging Diagonstic Imaging: Xray, CT Plain Films/CT/US/NM/MRI: hand, head Comments [facility] [place] NAME: TRAM HAINES [facility] REC#: [id number] PT STATUS: REG ER : 1940 PHYSICIAN: DANIELLE ASHER MD ADMIT DATE: 04/29/21/ER Signed Date of Exam:04/29/21 CT HEAD WO PROCEDURE: CT head without contrast. TECHNIQUE: Multiple contiguous axial images were obtained through the brain without the use of intravenous contrast. Auto Exposure Controls were utilized during the CT exam to meet ALARA standards for radiation dose reduction. INDICATION: Fall, abrasions, pain. COMPARISON: I have no priors. FINDINGS: There is low-density CSF appearing prominence to the bilateral extra-axial CSF spaces owing to cortical atrophy. No acute or suspect extra-axial fluid collection. There is no evidence for hemorrhage. There is no hydrocephalus or edema. There is no evidence for elevated pressures. No sulcal effacement. No mass or mass effect found. There is no paranasal sinus hemorrhage or air-fluid level. No orbital emphysema. No demonstrated fracture. IMPRESSION: Chronic cortical atrophy. No hemorrhage, fracture, or acute/post-traumatic abnormalities identified. Dictated by: Dictated on workstation # [id number] Dict: 04/29/21 1124 Trans: 04/29/21 1154 [id number] Interpreted by: BOSTON LESTER Electronically signed by: BOSTON LESTER 04/29/21 [address] [facility] [place] NAME: TRAM HAINES [facility] REC#: [id number] PT STATUS: REG ER : 1940 PHYSICIAN: DANIELLE ASHER MD ADMIT DATE: 04/29/21/ER Draft Date of Exam:04/29/21 HAND, RIGHT, 3 VIEWS INDICATION: Fall with right thumb pain. TECHNIQUE: AP, oblique, and lateral views of the right thumb were obtained. FINDINGS: No definite acute fracture or acute bony abnormality is seen. There is extensive degenerative change throughout the interphalangeal joints of all digits. There is degenerative change of the 1st MCP joint with slight subluxation which may be on a degenerative basis. There is degenerative change of the 1st carpometacarpal joint and radiocarpal joint. IMPRESSION: Extensive multifocal degenerative changes with no definite acute abnormality. Dictated on workstation # [id number] Dict: 04/29/21 1057 Trans: 04/29/21 1059 [id number] Interpreted by: JAIME MILLER MD Electronically signed by: (DANIELLE ASHER MD) Departure Communication (Admissions) Time/Spoke to Admitting Phy: 13:[address] Lundberg Time/Spoke to Consulting Phy: 13:[address] Ivey (DANIELLE ASHER MD) Impression Primary Impression: Syncope and collapse Additional Impressions: History of aortic stenosis Laceration of finger of left hand Qualified Codes: S61.217A - Laceration without foreign body of left little finger without damage to nail, initial encounter Laceration of finger of right hand Qualified Codes: S61.210A - Laceration without foreign body of right index finger without damage to nail, initial encounter Laceration of eyebrow Qualified Codes: S01.112A - Laceration without foreign body of left eyelid and periocular area, initial encounter Contusion of right thumb Qualified Codes: S60.011A - Contusion of right thumb without damage to nail, initial encounter Disposition: ADMITTED INPATIENT Condition: Stable Admissions Decision to Admit Reason: Admit from ER (General) Decision to Admit/Date: Apr 29, 2021 Time/Decision to Admit Time: 13:37 (DANIELLE ASHER MD) Departure-Patient Inst. Referrals: NO,LOCAL PHYSICIAN (PCP) Primary Care Physician MANOD RUBY (Family) Primary Care Physician Verification and Attestation of Medical Student E/M Service A medical student performed and documented this service in my presence. I reviewed and verified all information documented by the medical student and made modifications to such information, when appropriate. I personally performed the physical exam and medical decision making. Danielle Asher, Apr 29, 2021,13:39 (DANIELLE ASHER MD) GLENNA RODRIGUEZ STUDENT Apr 29, 2021 10:50 DANIELLE ASHER MD Apr 29, 2021 12:16
--- NOTE | 2021-04-29 10:59 | Diagnostic Imaging Report ---
INDICATION: Fall with right thumb pain. TECHNIQUE: AP, oblique, and lateral views of the right thumb were obtained. FINDINGS: No definite acute fracture or acute bony abnormality is seen. There is extensive degenerative change throughout the interphalangeal joints of all digits. There is degenerative change of the 1st MCP joint with slight subluxation which may be on a degenerative basis. There is degenerative change of the 1st carpometacarpal joint and radiocarpal joint. IMPRESSION: Extensive multifocal degenerative changes with no definite acute abnormality. Dictated by: Dictated on workstation # [id number]
[2021-04-29 11:23] LABS: BASOPHILS % (AUTO) 1 % (0-10); EOSINOPHILS # (AUTO) 0.1 10^3/uL (0.0-0.3); EOSINOPHILS % (AUTO) 2 % (0-10); HEMATOCRIT 38 % (40-54); HEMOGLOBIN 12.4 g/dL (13.3-17.7); LYMPHOCYTES # (AUTO) 1.2 10^3/uL (1.0-4.0); LYMPHOCYTES % (AUTO) 14 % (12-44); MEAN CORPUSCULAR HEMOGLOBIN 33 pg (25-34); MEAN CORPUSCULAR HGB CONC 33 g/dL (32-36); MEAN CORPUSCULAR VOLUME 102 fL (80-99); MEAN PLATELET VOLUME 10.4 fL (9.0-12.2); MONOCYTES # (AUTO) 0.5 10^3/uL (0.0-1.0); MONOCYTES % (AUTO) 6 % (0-12); NEUTROPHILS # (AUTO) 6.4 10^3/uL (1.8-7.8); NEUTROPHILS % (AUTO) 77 % (42-75); PLATELET COUNT 154 10^3/uL (130-400); WHITE BLOOD COUNT 8.4 10^3/uL (4.3-11.0)
[2021-04-29 11:32] LABS: POTASSIUM 4.3 MMOL/L (3.6-5.0)
[2021-04-29 11:34] LABS: CALCIUM 9.3 MG/DL (8.5-10.1)
--- NOTE | 2021-04-29 11:34 | Diagnostic Imaging Report ---
PROCEDURE: CT head without contrast. TECHNIQUE: Multiple contiguous axial images were obtained through the brain without the use of intravenous contrast. Auto Exposure Controls were utilized during the CT exam to meet ALARA standards for radiation dose reduction. INDICATION: Fall, abrasions, pain. COMPARISON: I have no priors. FINDINGS: There is low-density CSF appearing prominence to the bilateral extra-axial CSF spaces owing to cortical atrophy. No acute or suspect extra-axial fluid collection. There is no evidence for hemorrhage. There is no hydrocephalus or edema. There is no evidence for elevated pressures. No sulcal effacement. No mass or mass effect found. There is no paranasal sinus hemorrhage or air-fluid level. No orbital emphysema. No demonstrated fracture. IMPRESSION: Chronic cortical atrophy. No hemorrhage, fracture, or acute/post-traumatic abnormalities identified. Dictated by: Dictated on workstation # [id number]
[2021-04-29 11:38] LABS: CREATININE SERUM 1.32 MG/DL (0.60-1.30)
[2021-04-29 11:45] VITALS: BP 109/59
[2021-04-29] MEDS ORDERED: CATHETER FLUSH 10 ML SYR IV PRN (15:00)
[2021-04-29] MEDS ORDERED: APIX5TAB PO (16:29)
[2021-04-29] MEDS ORDERED: LEVO200T6 PO (16:29)
[2021-04-29] MEDS ORDERED: KETO15CR2 TP (16:29)
[2021-04-29] MEDS ORDERED: FAMO40TA6 PO (16:29)
[2021-04-29] MEDS ORDERED: POLY17PO6 PO (16:29)
[2021-04-29] MEDS ORDERED: ZOLP5TAB7 PO (16:29)
[2021-04-29] MEDS ORDERED: ASPI-1238 PO (16:29)
[2021-04-29] MEDS ORDERED: CYAN-41 PO (16:29)
[2021-04-29] MEDS ORDERED: FERR-84 PO (16:29)
[2021-04-29] MEDS ORDERED: PANT40TA52 PO (16:29)
[2021-04-29] MEDS ORDERED: ISOS60TA63 PO (16:29)
[2021-04-29] MEDS ORDERED: RANO10003 PO (16:29)
[2021-04-29] MEDS ORDERED: MULT-1136 PO (16:29)
[2021-04-29] MEDS ORDERED: GABA300C PO (16:29)
[2021-04-29] MEDS ORDERED: ATEN50TA PO (16:29)
[2021-04-29] MEDS ORDERED: LISI20TA26 PO (16:29)
[2021-04-29] MEDS ORDERED: ATOR40TA70 PO (16:34)
[2021-04-29 16:52] VITALS: BP 135/63
[2021-04-29 19:02] VITALS: BP 135/63
[2021-04-29] MEDS ORDERED: GABAPENTIN 300 MG (NEURONTIN) CAP PO SCH (21:00)
[2021-04-29] MEDS: RANOLAZINE ER 500 MG TAB (RANEXA) PO SCH (21:28)
[2021-04-29] MEDS: APIXABAN 5 MG (ELIQUIS) TABLET PO SCH (21:29)
[2021-04-29] MEDS: FAMOTIDINE 20 MG (PEPCID) TABLET PO SCH (21:29)
[2021-04-29] MEDS: CATHETER FLUSH 10 ML SYR IV SCH (21:29)
[2021-04-30] VITALS: BP 109/59
[2021-04-30] MEDS ORDERED: ACETAMINOPHEN 500 MG TAB (TYLENOL) PO PRN (03:00)
[2021-04-30] MEDS ORDERED: ACETAMINOPHEN 500 MG TAB (TYLENOL) ONE (03:04)
[2021-04-30 04:10] VITALS: BP 129/65
[2021-04-30] MEDS: CATHETER FLUSH 10 ML SYR IV SCH ×2 (06:20→14:38)
[2021-04-30 07:57] VITALS: BP 150/77
[2021-04-30] MEDS ORDERED: NON-FORMULARY MEDICATION 1 EA EA (Ranolazine (Ranexa) 1,000 MG) PO SCH (08:30)
[2021-04-30] MEDS ORDERED: APIXABAN 5 MG (ELIQUIS) TABLET PO SCH (09:00)
[2021-04-30] MEDS ORDERED: ASPIRIN E.C. 81 MG (ECOTRIN) TAB PO SCH (09:00)
[2021-04-30] MEDS ORDERED: ASPIRIN 81 MG CHEW (CHILDREN'S ASA) PO SCH (09:00)
[2021-04-30] MEDS ORDERED: LEVOTHYROXINE 100 MCG (LEVOTHROID) TAB PO SCH (09:00)
[2021-04-30] MEDS ORDERED: lisINopril 10 MG (PRINIVIL) TABLET PO SCH (09:00)
[2021-04-30] MEDS ORDERED: ISOSORBIDE MONONITRATE 60 MG (IMDUR) TAB PO SCH (09:00)
[2021-04-30] MEDS ORDERED: lisINopril 20 MG (PRINIVIL) TABLET PO SCH (09:00)
[2021-04-30] MEDS ORDERED: PANTOPRAZOLE 40 MG (PROTONIX) TAB PO SCH ×2 (09:00)
[2021-04-30] MEDS: RANOLAZINE ER 500 MG TAB (RANEXA) PO SCH (09:36)
[2021-04-30] MEDS: FAMOTIDINE 20 MG (PEPCID) TABLET PO SCH (09:37)
[2021-04-30] MEDS: APIXABAN 5 MG (ELIQUIS) TABLET PO SCH (09:37)
[2021-04-30 11:12] VITALS: BP 104/54
[2021-04-30 15:30] VITALS: BP 116/58
--- NOTE | 2021-04-30 17:33 | History & Physical-Hospitalist ---
History of Present Illness HPI/Chief Complaint David Harvey is an 80 year old male with PMH HTN, HLD, CAD, GERD, hypothyroidism, AFib, insomnia, CKD 3a, who presented with syncope. He was standing by his truck when he suddenly lost consciousness and fell to the g round. He denies any chest pain or palpitations. He did not feel lightheaded or dizzy. He did not have any fevers or chills. He denies shortness of breath and cough. He denies abdominal pain, nausea, vomiting, diarrhea. He has been taking his medications regularly. Source: patient Exam Limitations: no limitations Date Seen 04/30/21 Time Seen by a Provider: 11:05 Attending Physician Arie Lama MD PCP No,Local Physician Referring Physician Date of Admission Apr 29, 2021 at 13:30 Home Medications & Allergies Home Medications Reviewed patient Home Medication Reconciliation performed by pharmacy medication reconciliations installer technician and/or nursing. Patients Allergies have been reviewed. Allergies Allergies Coded Allergies No Known Drug Allergies (Unverified09/19/11) Past Kiibogc-Axbhoa-Dtqxie Hx Patient Social History Tobacco Use?: No Tobacco type used: Cigarettes Smoking Status: Former Smoker Substance use?: Yes Substance type: Marijuana Additional substance use comme: Marijuana use daily Substance frequency: Daily Alcohol Use?: Yes Alcohol type: Hard Liquor Alcohol Frequency: Rarely Pt feels they are or have been: No Immunizations Up To Date Date of Influenza Vaccine: Mar 18, 2021 First/Initial COVID19 Vaccinat: May 2020 Second COVID19 Vaccination Oleg: June 2020 Tetanus Booster (TDap): Less Than 5 Years Hepatitis A: Yes Hepatitis B: Yes Date of Pneumonia Vaccine: Mar 15, 2013 Seasonal Allergies Seasonal Allergies: No Current Status Advance Directives: Yes Advance Directive Location: Copy from prev record Communicates: Verbally Primary Language: Ethiopian Preferred Spoken Language: Ethiopian Sensory deficits: Vision impairment, Hearing impairment Implanted or Applied Medical D: Orthopedic hardware, Stents Past Medical History Surgeries: Abdominal, Gallbladder, Pancreatic Coronary Artery Disease, Hypertension Gastroesophageal Reflux, Chronic Constipation Arthritis Hypothyroidsim Loss of Vision: Denies Hearing Impairment: Denies Blood Disorders: No Family Medical History No Pertinent Family Hx Review of Systems Constitutional: no symptoms reported EENTM: no symptoms reported Respiratory: no symptoms reported Cardiovascular: syncope Gastrointestinal: no symptoms reported Genitourinary: no symptoms reported Musculoskeletal: no symptoms reported Skin: no symptoms reported Psychiatric/Neurological: No Symptoms Reported Physical Exam Physical Exam Vital Signs Vital Signs - First Documented 04/29/21 09:37 Temp 36.5 Pulse 48 Resp 18 B/P (MAP) 136/72 (93) Pulse Ox 99 O2 Delivery Room Air Capillary Refill : Less Than 3 Seconds Height, Weight, BMI Height: 6'1.00" Weight: 218lbs. 9.6oz. 99.601619cp; 21.38 BMI Method:Stated General Appearance: No Apparent Distress, WD/WN HEENT: PERRL/EOMI, Pharynx Normal Neck: Normal Inspection, Supple Respiratory: Lungs Clear, Normal Breath Sounds, No Respiratory Distress Cardiovascular: No Edema, No Murmur, Bradycardia Gastrointestinal: Normal Bowel Sounds, Non Tender, Soft Extremity: Normal Inspection, Non Tender, No Pedal Edema Neurologic/Psychiatric: Alert, Oriented x3, No Motor/Sensory Deficits, Normal Mood/Affect Skin: Normal Color, Warm/Dry Results Results/Procedures Labs Laboratory Tests 04/29/21 11:15 Patient resulted labs reviewed. Imaging: Reviewed Imaging Report Assessment/Plan Admission Diagnosis Syncope Admission Status: Observation Assessment and Plan Syncope Bradycardia Aortic stenosis Possibly cardiogenic Hold Atenolol Monitor on telemetry Obtain echo Cardiology consulted HTN HLD AFib CAD CKD 3a Hypothyroidism GERD Insomnia Continue home meds Diagnosis/Problems Diagnosis/Problems (1) Syncope and collapse Status: Acute (2) Bradycardia Status: Acute (3) Aortic stenosis Status: Chronic ARIE LAMA MD Apr 30, 2021 17:33
--- NOTE | 2021-04-30 18:52 | Consultation-Cardiology ---
HPI-Cardiology Cardiology Consultation: Date of Consultation 04/30/21 Date of Admission 04/29/2021 Attending Physician Shannon Lundberg MD Admitting Physician No,Local Physician Consulting Physician REYES MORALES JR, MD HPI: Time Seen by a Provider: 18:46 Chief Complaint: Reason for consultation: Syncope. I had the pleasure of seeing David on the medical/surgical unit at in [place], [place] this evening. He has a history of coronary artery disease with previous bypass surgery followed by stents as well as aortic stenosis. He normally follows with one of my partners. Yesterday he woke up in the morning and felt fine. He ate breakfast and then went out to his truck to leave his house and the next thing he can remember is waking up on the ground. He denies any palpitations or any other premonitory symptoms. He came to the hospital for further evaluation. Because of the syncope, a cardiology consultation was requested. He denies any previous history of syncope. Prior to this event, he had been feeling well and denies any chest discomfort, dyspnea, paroxysmal nocturnal dyspnea, apnea, palpitations, lightheadedness, or lower extremity edema. He wants to go home this evening. Certain portions of this document may have been dictated utilizing voice recognition technology. Inherent to this technology, typographical and grammatical errors may exist. As much as I am diligent to identify and correct these mistakes, some errors may remain in the document. Review of Systems-Cardiology Review of Systems Other comments Review of 10 organ systems is as per the history of present illness, otherwise negative. All Other Systems Reviewed Negative Unless Noted: Yes (Negative excepted noted.) HZN-Wrujkh-Qenijf Hx Patient Social History Smoking Status: Former Smoker Have you traveled recently?: No Alcohol Use?: Yes Substance type: Marijuana Pt feels they are or have been: No Tobacco type used: Cigarettes Immunizations Up To Date Tetanus Booster (TDap): More than 5yrs Date of Pneumonia Vaccine: Mar 15, 2013 Date of Influenza Vaccine: Mar 18, 2021 Past Medical History PMH As described under Assessment. Family Medical History Family Medical History: All of his brothers have coronary artery disease. Allergies and Home Medications Allergies Coded Allergies: No Known Drug Allergies (Unverified , 09/19/11) Patient Home Medication List Home Medication List Reviewed: Yes Apixaban (Eliquis) 5 Mg Tablet, 5 MG PO BID, (Reported) Entered as Reported by: BRIGHT HORTON on 04/29/211628 Last Action: Continued Aspirin (Aspirin EC) 81 Mg Tablet.dr, 81 MG PO DAILY, (Reported) Entered as Reported by: BRIGHT HORTON on 04/29/211628 Last Action: Continued Atenolol (Atenolol) 50 Mg Tablet, 25 MG PO HS, (Reported) Entered as Reported by: BRIGHT HORTON on 04/29/211628 Last Action: Held Atorvastatin Calcium (Atorvastatin Calcium) 40 Mg Tablet, 20 MG PO HS, (Reported) Entered as Reported by: BRIGHT HORTON on 04/29/211633 Last Action: Continued Cyanocobalamin (Vitamin B-12) (Vitamin B-12) 1,000 Mcg Tablet, 1,000 MCG PO DAILY, (Reported) Entered as Reported by: BRIGHT HORTON on 04/29/211628 Last Action: Held Famotidine (Famotidine) 40 Mg Tablet, 40 MG PO BID, (Reported) Entered as Reported by: BRIGHT HORTON on 04/29/211628 Last Action: Held Ferrous Sulfate (Iron) 325 Mg Tablet, 162.5 MG PO HS, (Reported) Entered as Reported by: BRIGHT HORTON on 04/29/211628 Last Action: Held Gabapentin (Neurontin) 300 Mg Capsule, 300 MG PO HS, (Reported) Entered as Reported by: BRIGHT HORTON on 04/29/211628 Last Action: Continued Isosorbide Mononitrate (Isosorbide Mononitrate ER) 60 Mg Tab, 60 MG PO DAILY, (Reported) Entered as Reported by: BRIGHT HORTON on 04/29/211628 Last Action: Continued Ketoconazole (Ketoconazole) 15 Gm Cream..g., 1 APPLIC TP TWICE WEEKLY, (Reported) Entered as Reported by: BRIGHT HORTON on 04/29/211628 Last Action: Held Levothyroxine Sodium (Levothyroxine Sodium) 200 Mcg Tablet, 200 MCG PO DAILY, (Reported) Entered as Reported by: BRIGHT HORTON on 04/29/211628 Last Action: Converted Lisinopril (Lisinopril) 20 Mg Tablet, 10 MG PO DAILY, (Reported) Entered as Reported by: BRIGHT HORTON on 04/29/211628 Last Action: Continued Multivitamin (Multivitamin) 1 Each Tablet, 1 EACH PO HS, (Reported) Entered as Reported by: BRIGHT HORTON on 04/29/211628 Last Action: Held Pantoprazole Sodium (Pantoprazole Sodium) 40 Mg Tablet.dr, 40 MG PO BID, (Reported) Entered as Reported by: BRIGHT HORTON on 04/29/211628 Last Action: Continued Polyethylene Glycol 3350 (Miralax) 17 Gm Powd.pack, 17 GM PO DAILY, (Reported) Entered as Reported by: BRIGHT HORTON on 04/29/211628 Last Action: Held Ranolazine (Ranexa) 1,000 Mg Tab.er.12h, 1,000 MG PO Q12H, (Reported) Entered as Reported by: BRIGHT HORTON on 04/29/211628 Last Action: Converted Zolpidem Tartrate (Zolpidem Tartrate) 5 Mg Tablet, 5 MG PO HS, (Reported) Entered as Reported by: BRIGHT HORTON on 04/29/211628 Last Action: Continued Discontinued Medications Aspirin (Aspirin Ec 81 Mg) 81 Mg Tabec, 81 MG PO DAILY, (Reported) Discontinued Reason: No Longer Taking Entered as Reported by: SHARAD CERDA on 05/26/12 1432 Last Action: Discontinued Atenolol (Atenolol) 50 Mg Tablet, 50 MG PO DAILY, (Reported) Discontinued Reason: No Longer Taking Entered as Reported by: ANGELI VERA on 05/29/16 1356 Last Action: Discontinued Atorvastatin Calcium (Atorvastatin Calcium) 80 Mg Tablet, 80 MG PO DAILY, (Reported) Discontinued Reason: No Longer Taking Entered as Reported by: ANGELI VERA on 05/29/16 1356 Last Action: Discontinued Bupropion HCl (Bupropion HCl) 75 Mg Tablet, 75 MG PO BID, (Reported) Discontinued Reason: No Longer Taking Entered as Reported by: ANGELI VERA on 10/11/15 1103 Last Action: Discontinued Cephalexin (Cephalexin) 500 Mg Tablet, 500 MG PO TID Discontinued Reason: No Longer Taking Prescribed by: LUISA CRANDALL on 09/04/20 1011 Last Action: Discontinued Clopidogrel Bisulfate (Plavix) 75 Mg Tablet, 75 MG PO DAILY, (Reported) Discontinued Reason: No Longer Taking Entered as Reported by: ANGELI VERA on 10/11/15 1103 Last Action: Discontinued Docusate Sodium (Docusate Sodium) 100 Mg Tablet, 300 MG PO TID, (Reported) Discontinued Reason: No Longer Taking Entered as Reported by: ANGELI VERA on 10/11/15 1103 Last Action: Discontinued Ferrous Gluconate (Iron) 240 Mg Tablet, 120 MG PO HS, (Reported) Discontinued Reason: No Longer Taking Entered as Reported by: ANGELI VERA on 10/11/15 1111 Last Action: Discontinued Isosorbide Mononitrate (Isosorbide Mononitrate ER) 60 Mg Tab, 60 MG PO DAILY, (Reported) Discontinued Reason: No Longer Taking Entered as Reported by: ANGELI VERA on 10/11/15 1103 Last Action: Discontinued Levothyroxine Sodium (Levothyroxine Sodium) 25 Mcg Tablet, 25 MCG PO HS, (Reported) Discontinued Reason: No Longer Taking Entered as Reported by: ANGELI VERA on 10/11/15 1111 Last Action: Discontinued Lipase/Protease/Amylase (Creon Dr 12,000 Units Capsule) 1 Each Capsule.dr, 2,400 UNITS PO TID, (Reported) Discontinued Reason: No Longer Taking Entered as Reported by: ANGELI VERA on 10/11/15 1111 Last Action: Discontinued Multivitamins (Multivitamins) 1 Each Capsule, 1 TAB PO DAILY, (Reported) Discontinued Reason: No Longer Taking Entered as Reported by: SHARAD CERDA on 05/26/12 1419 Last Action: Discontinued Nitroglycerin (Nitrostat) 0.4 Mg Subl, 0.4 MG SL NEEDED PRN, (Reported) Discontinued Reason: No Longer Taking Entered as Reported by: COCO PEREZ on 12/21/11 0534 Last Action: Discontinued Pantoprazole Sodium (Pantoprazole Sodium) 40 Mg Tablet.dr, 40 MG PO DAILY, (Re ported) Discontinued Reason: No Longer Taking Entered as Reported by: ANGELI VERA on 05/29/16 1356 Last Action: Discontinued Ranolazine (Ranexa) 1,000 Mg Tab.er.12h, 1,000 MG PO BID, (Reported) Discontinued Reason: No Longer Taking Entered as Reported by: ANGELI VERA on 10/11/15 1103 Last Action: Discontinued Sucralfate (Carafate) 1 Gm Tablet, 1 GM PO TID, (Reported) Discontinued Reason: No Longer Taking Entered as Reported by: ANGELI VERA on 05/29/16 1356 Last Action: Discontinued Ubidecarenone (Coq-10) 100 Mg Capsule, 100 MG PO HS, (Reported) Discontinued Reason: No Longer Taking Entered as Reported by: ANGELI VERA on 10/11/15 1111 Last Action: Discontinued Exam Vital Signs Vital Signs Date Time Temp Pulse Resp B/P (MAP) Pulse Ox O2 Delivery O2 Flow Rate FiO2 04/30/21 15:30 36.8 52 18 116/58 (77) 99 Room Air Physical Exam General: Alert. No acute distress. Well nourished and appears stated age. Eye: Extraocular movements are intact. Conjunctivae are clear. There are no xanthelasma. HENT: Normocephalic. He has periorbital hematoma on the left eye and a laceration above the left eye which is bandaged. Carotid pulsations 2/2 with probable bilateral radiated murmur. Neck: Jugular venous pressure does not appear elevated. No thyromegaly appreciated. Respiratory: Lungs are clear to auscultation. Respirations are non-labored. Breath sounds are equal. Symmetrical chest wall expansion. Cardiovascular: Normal rate. Regular rhythm. 3/6 high-pitched systolic ejection murmur. No gallop. Point of maximal impulse is not appear displaced. Good pulses equal in all extremities. No edema. Gastrointestinal: Soft. Normal bowel sounds. Skin: Skin turgor is normal. There is no pallor. Musculoskeletal: No kyphosis or scoliosis appreciated. He has abrasions on his hand and 2 fingers are bandaged. Neurologic: Alert and oriented to person, place, time. Cranial nerves 3-12 appear grossly intact. The patient has good motor tone strength in the upper and lower extremities bilaterally. Psychiatric: Cooperative. Appropriate mood & affect. ECG Impression ECG Comment Sinus bradycardia 47 bpm with first-degree AV block and possible old anterior infarct. Diagnosis/Problems Diagnosis/Problems (1) Syncope Assessment & Plan: Exact etiology unclear. There is no evidence of Ixsba-Rrohoxhcy-Lzhbh, Brugada syndrome, or prolonged or short QT on his resting electrocardiogram. He does have sinus bradycardia with a prolonged CT interval. Unclear whether or not this may have contributed to the syncope. I recommend stopping his atenolol. Furthermore, he has at least moderate aortic stenosis which could have also caused syncope. From a cardiac standpoint, it would not be unreasonable to discharge him to home but he should not take any beta- cristiane. I have asked him to call our office in the morning to get a follow-up appointment. He may need some prolonged cardiac monitoring and possibly a transesophageal echocardiogram to further evaluate the aortic valve. (2) Aortic stenosis Status: Chronic Assessment & Plan: His echocardiogram from today shows at least moderate aortic stenosis. The valve gradients are consistent with moderate aortic stenosis but visually, the aortic valve appears to open minimally and he may actually have severe aortic stenosis. This could have caused the syncope. He may need a SRAVANTHI. This could certainly be evaluated further as an outpatient on an elective basis. (3) Coronary artery disease without angina pectoris Assessment & Plan: He is not having any angina at this point time. I recommend he continue on the guideline directed medical therapy but discontinue atenolol due to bradycardia. (4) Sinus bradycardia Assessment & Plan: Possibly related to the beta-cristiane. This should be discontinued. This may have caused his syncope. He may need some prolonged monitoring after he is discharged. We can arrange for that through our office. (5) Primary hypertension Assessment & Plan: Blood pressures are reasonably controlled with the present medication but as above, I recommend stopping the atenolol. He may need some adjustment of his other antihypertensive medication after discharge. (6) Mixed hyperlipidemia Assessment & Plan: Continue statin medication. REYES MORALES JR, MD Apr 30, 2021 18:52
[2021-04-30] MEDS ORDERED: ATOR40TA70 PO (19:32)
[2021-04-30 19:49] VITALS: BP 116/58
[2021-04-30] MEDS ORDERED: ZOLPIDEM 5 MG (AMBIEN) TAB PO SCH (21:00)
[2021-04-30] MEDS ORDERED: GABAPENTIN 300 MG (NEURONTIN) CAP PO SCH (21:00)
== END 2021-04-30 19:37 | disposition home or self-care (01) ==
LOC: EDUNIT# 09:22 → ER 09:24 → 4TH 13:30
PROVIDERS: ADMIT Internal Medicine; ATTEND Internal Medicine
DX: R55 Syncope and collapse (principal); R00.1 Bradycardia, unspecified; S61.217A Laceration without foreign body of left little finger without damage to nail, initial encounter; S61.210A Laceration without foreign body of right index finger without damage to nail, initial encounter; S01.112A Laceration without foreign body of left eyelid and periocular area, initial encounter; S60.011A Contusion of right thumb without damage to nail, initial encounter; I35.0 Nonrheumatic aortic (valve) stenosis; I48.91 Unspecified atrial fibrillation; I12.9 Hypertensive chronic kidney disease with stage 1 through stage 4 chronic kidney disease, or unspecified chronic kidney disease; N18.31 Chronic kidney disease, stage 3a; K21.9 Gastro-esophageal reflux disease without esophagitis; G47.00 Insomnia, unspecified; I25.10 Atherosclerotic heart disease of native coronary artery without angina pectoris; K59.09 Other constipation; M19.90 Unspecified osteoarthritis, unspecified site; E03.9 Hypothyroidism, unspecified; E78.5 Hyperlipidemia, unspecified; Z87.891 Personal history of nicotine dependence; Z79.82 Long term (current) use of aspirin; Z79.899 Other long term (current) drug therapy; Z79.890 Hormone replacement therapy
CPT/HCPCS: 12001; 12011; 36415; 64450; 70450; 73130; 80048; 85025; 90715; 93005; 93306; G0378

== ENCOUNTER 2021-08-30 08:15 | Outpatient (RCR) | payer OTHER ==
[~2021-08-30 08:15] MED LIST changes: +APIX5TAB PO; +ASPI-1238 PO; +CYAN-41 PO; +FAMO40TA6 PO; +FERR-84 PO; +GABA300C PO; +KETO15CR2 TP; +LEVO200T6 PO; +LISI20TA26 PO; +MULT-1136 PO; +POLY17PO6 PO; +ZOLP5TAB7 PO
== END 2021-08-31 | disposition home or self-care (01) ==
LOC: CR 08:15
PROVIDERS: ATTEND Thoracic Surgery (Cardiothoracic Vascular Surgery)
DX: Z29.8 Encounter for other specified prophylactic measures (principal); I35.0 Nonrheumatic aortic (valve) stenosis
CPT/HCPCS: 93798

== ENCOUNTER 2021-09-27 07:59 | Outpatient (RCR) | payer OTHER | END 2021-10-01 | disposition home or self-care (01) | LOC: CR 07:59 | PROVIDERS: ATTEND Thoracic Surgery (Cardiothoracic Vascular Surgery) | DX: Z29.8 Encounter for other specified prophylactic measures (principal); I35.0 Nonrheumatic aortic (valve) stenosis | CPT/HCPCS: 93798 ==

== ENCOUNTER 2021-10-30 14:41 | Outpatient (RCR) | payer OTHER | END 2021-10-31 | disposition home or self-care (01) | LOC: CR 14:41 | PROVIDERS: ATTEND Thoracic Surgery (Cardiothoracic Vascular Surgery) | DX: Z29.8 Encounter for other specified prophylactic measures (principal); I35.0 Nonrheumatic aortic (valve) stenosis | CPT/HCPCS: 93798 ==

== ENCOUNTER 2021-11-27 09:07 | Outpatient (RCR) | payer OTHER | END 2021-12-01 | disposition home or self-care (01) | LOC: CR 09:07 | PROVIDERS: ATTEND Thoracic Surgery (Cardiothoracic Vascular Surgery) | DX: Z29.8 Encounter for other specified prophylactic measures (principal); I35.0 Nonrheumatic aortic (valve) stenosis; Z95.2 Presence of prosthetic heart valve | CPT/HCPCS: 93798 ==

== ENCOUNTER → 2021-12-10 | Outpatient (CLI) | payer OTHER ==
--- NOTE | 2021-12-10 13:22 | Diagnostic Imaging Report ---
PROCEDURE: CT abdomen and pelvis without contrast. TECHNIQUE: Multiple contiguous axial images were obtained through the abdomen and pelvis without the use of intravenous contrast. Auto Exposure Controls were utilized during the CT exam to meet ALARA standards for radiation dose reduction. INDICATION: Weight loss. Correlation is made prior CT 02/17/2012. Imaging through the lung bases demonstrate some linear atelectasis or scarring in the right lower lobe. No focal liver mass is identified. Gallbladder surgically absent. There is no biliary duct dilatation. Pancreas appears atrophic. There are some pancreatic calcifications. Spleen is unremarkable. No adrenal mass is detected. Kidneys are unremarkable. Aorta is mildly aneurysmal at 3.3 cm AP diameter. This terminates above the bifurcation. Iliacs are heavily calcified as well. The bowel loops are normal caliber. There is moderate stool throughout the colon. There is diverticulosis of the sigmoid colon but no evidence of acute diverticulitis. No free fluid or fluid collection. Bladder is unremarkable. Prostate is enlarged. Bony structures are nonacute. IMPRESSION: 1. Mild infrarenal abdominal aortic aneurysm. 2. Prostatomegaly. 3. Features consistent with chronic pancreatitis. 4. Moderate stool in the colon consistent with constipation. Dictated by: Dictated on workstation # [id number]
== END ==
LOC: RAD 11:45
PROVIDERS: ATTEND Nurse Practitioner
DX: Z01.89 Encounter for other specified special examinations (principal); I71.4 Abdominal aortic aneurysm, without rupture; N40.0 Benign prostatic hyperplasia without lower urinary tract symptoms; R63.4 Abnormal weight loss
CPT/HCPCS: 74176

== ENCOUNTER → 2021-12-17 | Outpatient (CLI) | payer OTHER | LOC: CARD 10:31 | PROVIDERS: ATTEND Physician Assistant | DX: I11.9 Hypertensive heart disease without heart failure (principal); Z95.2 Presence of prosthetic heart valve | CPT/HCPCS: 93306 ==

== ENCOUNTER 2022-07-19 12:51 | Emergency (ER) | payer OTHER ==
[~2022-07-19] VITALS: Ht 186 cm; Wt 66.0 kg
[~2022-07-19 12:51] MED LIST changes: +CLOP-31 PO; -CLOP75TA69 PO
--- NOTE | 2022-07-19 12:58 | ED Chest Pain ---
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 EMS GAVE 324 MG ASPIRIN ON ARRIVAL, PT STATES HE IS NOT HAVING ANY SYMPTOMS OF ANY KIND HE DENIES FEVER, COUGH OR RECENT ILLNESS NO ABDOMINAL PAIN NO BACK PAIN NO SWELLING IN LEGS/FEET OR PAIN IN CALVES HE STATES HE HAS LOST 70# IN THE LAST 6-7 MONTHS--UNEXPLAINED. PT HAS HISTORY OF [place] WITH 4 VESSEL CABG AND "3 OR 4 STENTS" PER PT. HE ALSO HAD A VALVE REPLACEMENT IN 2021 AT --PT DOES NOT KNOW WHICH VALVE--HX OF AORTIC VALVE STENOSIS PER OLD RECORDS. HE IS ON ASPIRIN AND ELIQUIS. HE HAS HISTORY OF HTN AND HYPERLIPIDEMIA HE DENIES HISTORY OF DIABETES. HE SEES DR. SILVER LOCALLY FOR CARDIOLOGY, OTHERWISE ALL MEDICAL CARE IS THROUGH THE [facility]--HE GOES TO [facility]. HE STATES THEY DID DECREASED THE DOSE OF ONE OF HIS MEDICATIONS A WEEK OR TWO AGO--HE HAS NO IDEA WHICH MEDICATION IT WAS. HE HAS TAKEN ALL HIS MORNING MEDICAIONT ON ARRIVAL PT IS TALKING LOUDLY, LAUGHING AND JOKING AND TALKING NON-STOP ABOUT [employer] BASKETBALL GAME TODAY. 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 ADRIANNE PORTILLO FOR VALVE REPLACEMENT Allergies and Home Medications Allergies Coded Allergies: No Known Drug Allergies (Unverified , 09/19/11) Patient Home Medication List Home Medication List Reviewed: Yes Apixaban (Eliquis) 5 Mg Tablet, 5 MG PO BID, (Reported) Entered as Reported by: BRIGHT HORTON on 04/29/211628 Aspirin (Aspirin EC) 81 Mg Tablet.dr, 81 MG PO DAILY, (Reported) Entered as Reported by: BRIGHT HORTON on 04/29/21 162 Atorvastatin Calcium (Atorvastatin Calcium) 40 Mg Tablet, 20 MG PO HS, (Reported) Prescribed by: REYES MORALES JR, MD on 09/10/21 0638 Entered as Reported by: IVET HERNANDEZ on 04/30/211931 Cyanocobalamin (Vitamin B-12) (Vitamin B-12) 1,000 Mcg Tablet, 1,000 MCG PO DAILY, (Reported) Entered as Reported by: BRIGHT HORTON on 04/29/211628 Famotidine (Famotidine) 40 Mg Tablet, 40 MG PO BID, (Reported) Entered as Reported by: BRIGHT HORTON on 04/29/211628 Ferrous Sulfate (Iron) 325 Mg Tablet, 162.5 MG PO HS, (Reported) Entered as Reported by: BRIGHT HORTON on 04/29/211628 Gabapentin (Neurontin) 300 Mg Capsule, 300 MG PO HS, (Reported) Entered as Reported by: BRIGHT HORTON on 04/29/211628 Isosorbide Mononitrate (Isosorbide Mononitrate ER) 60 Mg Tab, 60 MG PO DAILY, (Reported) Entered as Reported by: BRIGHT HORTON on 04/29/211628 Ketoconazole (Ketoconazole) 15 Gm Cream..g., 1 APPLIC TP TWICE WEEKLY, (Reported) Entered as Reported by: BRIGHT HORTON on 04/29/211628 Levothyroxine Sodium (Levothyroxine Sodium) 200 Mcg Tablet, 200 MCG PO DAILY, (Reported) Entered as Reported by: BRIGHT HORTON on 04/29/211628 Lisinopril (Lisinopril) 20 Mg Tablet, 10 MG PO DAILY, (Reported) Entered as Reported by: BRIGHT HORTON on 04/29/211628 Multivitamin (Multivitamin) 1 Each Tablet, 1 EACH PO HS, (Reported) Entered as Reported by: BRIGHT HORTON on 04/29/211628 Pantoprazole Sodium (Pantoprazole Sodium) 40 Mg Tablet.dr, 40 MG PO BID, (Reported) Entered as Reported by: BRIGHT HORTON on 04/29/211628 Polyethylene Glycol 3350 (Miralax) 17 Gm Powd.pack, 17 GM PO DAILY, (Reported) Entered as Reported by: BRIGHT HORTON on 04/29/211628 Ranolazine (Ranexa) 1,000 Mg Tab.er.12h, 1,000 MG PO Q12H, (Reported) Entered as Reported by: BRIGHT HORTON on 04/29/211628 Zolpidem Tartrate (Zolpidem Tartrate) 5 Mg Tablet, 5 MG PO HS, (Reported) Entered as Reported by: BRIGHT HORTON on 04/29/21 162 Review of Systems Review of Systems Constitutional: see HPI, dizziness, weight loss (LOST 70# IN THE LAST 6-7 MONTHS--UNEXPLAINED WEIGHT LOSS) EENTM: No Symptoms Reported Respiratory: See HPI, Shortness of Air Cardiovascular: See HPI, Chest Pain; Denies Edema, Denies Irregular Heart Rate, Denies Lightheadedness, Denies Palpitations, Denies Syncope Gastrointestinal: See HPI; Denies Abdominal Pain, Denies Diarrhea; Nausea; Denies Vomiting Genitourinary: No Symptoms Reported Musculoskeletal: no symptoms reported Skin: no symptoms reported Psychiatric/Neurological: No Symptoms Reported Endocrine: No Symptoms Reported Hematologic/Lymphatic: No Symptoms Reported Past Hixyaew-Onqwoj-Pdpkfw Hx Patient Social History Tobacco Use?: Yes Tobacco type used: Cigars, Cigarettes Smoking Status: Current Everyday Smoker Substance use?: Yes Substance type: Marijuana Substance frequency: Daily Alcohol Use?: Yes Alcohol type: Hard Liquor Alcohol Frequency: Daily Immunizations Up To Date Tetanus Booster (TDap): More than 5yrs First/Initial COVID19 Vaccinat: May 2020 Second COVID19 Vaccination Oleg: June 2020 Seasonal Allergies Seasonal Allergies: No Past Medical History Surgery/Hospitalization HX: None Surgeries: Yes (left ankle sx, Quad bypass, 3 stents, hernia repair x2 after pancreas sx) Abdominal, Cardiac, CABG, Coronary Stent, Gallbladder, Orthopedic, Pancreatic Respiratory: No Cardiac: Yes (QUAD. BY-PASS; STENTS X3) Coronary Artery Disease, Heart Attack, High Cholesterol, Hypertension, Peripheral Vascular Neurological: No Reproductive Disorders: No Genitourinary: No Gastrointestinal: Yes (HX. OF HERNIA SURGERY) Abdominal Hernia, Gastroesophageal Reflux, Chronic Constipation Musculoskeletal: Yes Arthritis Endocrine: Yes Hypothyroidsim Loss of Vision: Denies Hearing Impairment: Denies Cancer: No Psychosocial: No Integumentary: No Blood Disorders: No Family Medical History No Pertinent Family Hx SOCIAL HISTORY: -SMOKED 1-2 PPD CIGARETTES, "NOT MUCH NOW" BUT STILL SMOKES SOME CIGARETTES EVERY DAY, AND STILL SMOKES CIGARS DAILY. -ETOH--DRINKS [place] WHISKEY DAILY -DRUGS--SMOKES MARIJUANA DAILY. PAST SURGICAL HISTORY: -CARDIAC CATHS WITH "3-4 STENTS" PER PT -4 VESSEL CABG -AORTIC VALVE REPLACEMENT 2021 -CHOLECYSTECTOMY -PARTIAL PANCREATECTOMY AND BOWEL RESECTION -HERNIA REPAIR X 2 -LEFT ANKLE SURGERY Physical Exam Vital Signs Vital Signs - First Documented 07/19/22 12:53 Temp 36.7 Pulse 57 Resp 18 B/P (MAP) 119/66 (83) Pulse Ox 98 O2 Delivery Room Air Capillary Refill : Height, Weight, BMI Height: 6'1.00" Weight: 218lbs. 9.6oz. 99.985729eg; 21.38 BMI Method:Stated General Appearance: No Apparent Distress, WD/WN, Cachetic, Other (TALKS NON- STOP) HEENT: PERRL/EOMI Neck: Full Range of Motion, Normal Inspection, Non Tender, Supple; No Carotid Bruit, No JVD Respiratory: Chest Non Tender, Normal Breath Sounds, No Accessory Muscle Use, No Respiratory Distress Cardiovascular: Regular Rate, Rhythm, No Edema, No JVD, No Murmur, Normal Peripheral Pulses Gastrointestinal: Normal Bowel Sounds, No Organomegaly, No Pulsatile Mass, Non Tender, Soft, Other (LARGE VENTRAL HERNIA--ESSENTIALLY THE ENTIRE ABDOMINAL WALL--WEARING AN ABDOMINAL BINDER. ) Extremity: Normal Capillary Refill, Normal Inspection, Normal Range of Motion, Non Tender, No Calf Tenderness, No Pedal Edema Neurologic/Psychiatric: Alert, Oriented x3, No Motor/Sensory Deficits, Normal Mood/Affect, duplication specialist II-XII Norm as Tested Skin: Normal Color, Warm/Dry; No Rash Procedures/Interventions Suture Size: 5-0 Progress/Results/Core Measures Results/Orders Lab Results Laboratory Tests Test 07/19/22 13:09 07/19/22 15:00 07/19/22 15:40 Range/Units White Blood Count 7.1 4.3-11.0 10^3/uL Red Blood Count 2.98 L 4.30-5.52 10^6/uL Hemoglobin 10.3 L 13.3-17.7 g/dL Hematocrit 30 L 40-54 % Mean Corpuscular Volume 102 H 80-99 fL Mean Corpuscular Hemoglobin 35 H 25-34 pg Mean Corpuscular Hemoglobin Concent 34 32-36 g/dL Red Cell Distribution Width 13.3 10.0-14.5 % Platelet Count 139 130-400 10^3/uL Mean Platelet Volume 10.7 9.0-12.2 fL Immature Granulocyte % (Auto) 1 % Neutrophils (%) (Auto) 64 42-75 % Lymphocytes (%) (Auto) 26 12-44 % Monocytes (%) (Auto) 6 0-12 % Eosinophils (%) (Auto) 2 0-10 % Basophils (%) (Auto) 1 0-10 % Neutrophils # (Auto) 4.6 1.8-7.8 10^3/uL Lymphocytes # (Auto) 1.9 1.0-4.0 10^3/uL Monocytes # (Auto) 0.5 0.0-1.0 10^3/uL Eosinophils # (Auto) 0.2 0.0-0.3 10^3/uL Basophils # (Auto) 0.0 0.0-0.1 10^3/uL Immature Granulocyte # (Auto) 0.1 0.0-0.1 10^3/uL Prothrombin Time 18.4 H 12.2-14.7 SEC INR Comment 1.5 H 0.8-1.4 Activated Partial Thromboplast Time 36 H 24-35 SEC D-Dimer 0.89 H 0.00-0.49 UG/ML Sodium Level 139 135-145 MMOL/L Potassium Level 4.7 3.6-5.0 MMOL/L Chloride Level 107 98-107 MMOL/L Carbon Dioxide Level 19 L 21-32 MMOL/L Anion Gap 13 5-14 MMOL/L Blood Urea Nitrogen 21 H 7-18 MG/DL Creatinine 1.37 H 0.60-1.30 MG/DL Estimat Glomerular Filtration Rate 52 BUN/Creatinine Ratio 15 Glucose Level 132 H 70-105 MG/DL Calcium Level 8.6 8.5-10.1 MG/DL Corrected Calcium 8.8 8.5-10.1 MG/DL Magnesium Level 2.0 1.6-2.4 MG/DL Total Bilirubin 0.7 0.1-1.0 MG/DL Aspartate Amino Transf (AST/SGOT) 17 5-34 U/L Alanine Aminotransferase (ALT/SGPT) 17 0-55 U/L Alkaline Phosphatase 68 40-136 U/L Total Creatine Kinase 35 30-200 U/L Creatine Kinase MB 0.8 <6.6 NG/ML Myoglobin 38.6 10.0-92.0 NG/ML Troponin I < 0.028 < 0.028 <0.028 NG/ML B-Type Natriuretic Peptide 119.2 H <100.0 PG/ML Total Protein 6.5 6.4-8.2 GM/DL Albumin 3.8 3.2-4.5 GM/DL Amylase Level 24 L 25-125 U/L Lipase 11 8-78 U/L Serum Alcohol < 10 <10 MG/DL Urine Color ORANGE Urine Clarity CLEAR Urine pH 7.5 5-9 Urine Specific [place] 1.015 L 1.016-1.022 Urine Protein 1+ H NEGATIVE Urine Glucose (UA) NEGATIVE NEGATIVE Urine Ketones NEGATIVE NEGATIVE Urine Nitrite NEGATIVE NEGATIVE Urine Bilirubin NEGATIVE NEGATIVE Urine Urobilinogen 1.0 < = 1.0 MG/DL Urine Leukocyte Esterase TRACE H NEGATIVE Urine RBC (Auto) NEGATIVE NEGATIVE Urine RBC RARE /HPF Urine WBC NONE /HPF Urine Squamous Epithelial Cells RARE /HPF Urine Crystals NONE /LPF Urine Bacteria TRACE /HPF Urine Casts PRESENT /LPF Urine Hyaline Casts 5-10 H /LPF Urine Mucus NEGATIVE /LPF Urine Culture Indicated NO Urine Opiates Screen NEGATIVE NEGATIVE Urine Oxycodone Screen NEGATIVE NEGATIVE Urine Methadone Screen NEGATIVE NEGATIVE Urine Propoxyphene Screen NEGATIVE NEGATIVE Urine Barbiturates Screen NEGATIVE NEGATIVE Ur Tricyclic Antidepressants Screen NEGATIVE NEGATIVE Urine Phencyclidine Screen NEGATIVE NEGATIVE Urine Amphetamines Screen NEGATIVE NEGATIVE Urine Methamphetamines Screen NEGATIVE NEGATIVE Urine Benzodiazepines Screen NEGATIVE NEGATIVE Urine Cocaine Screen NEGATIVE NEGATIVE Urine Cannabinoids Screen POSITIVE H NEGATIVE My Orders Orders - RUDOLPH OH DO Cbc With Automated Diff (07/19/22 12:55) Magnesium (07/19/22 12:55) Chest 1 View, Ap/Pa Only (07/19/22 12:55) Ekg Tracing (07/19/22 12:55) Comprehensive Metabolic Panel (07/19/22 12:55) Myoglobin Serum (07/19/22 12:55) Protime With Inr (07/19/22 12:55) Partial Thromboplastin Time (07/19/22 12:55) O2 (07/19/22 12:55) Monitor-Rhythm Ecg Trace Only (07/19/22 12:55) Ed Iv/Invasive Line Start (07/19/22 12:55) Creatine Kinase (07/19/22 12:55) Creatine Kinase Mb (07/19/22 12:55) Lipase (07/19/22 12:55) Amylase (07/19/22 12:55) Bnp [place] (07/19/22 12:55) Fibrin Degradation Products (07/19/22 12:55) Troponin I Bro (07/19/22 12:55) Aspirin Chewable Tablet (Baby Aspirin Ch (07/19/22 13:00) Ct Roxanne Chest/Noang Abd-Pelv W (07/19/22 14:01) Ed Iv/Invasive Line Start (07/19/22 14:03) Lactated Ringers (Lr 1000 Ml Iv Solution (07/19/22 14:15) Iohexol Injection (Omnipaque 350 Mg/Ml 1 (07/19/22 14:15) Ns (Ivpb) (Sodium Chloride 0.9% Ivpb Bag (07/19/22 14:15) Alcohol (07/19/22 14:49) Drug Screen Stat (Urine) (07/19/22 14:49) Ua Culture If Indicated (07/19/22 14:49) Ekg Tracing (07/19/22 15:28) Troponin I [place] (07/19/22 15:28) Ed Iv/Invasive Line Start (07/19/22 15:31) Lactated Ringers (Lr 1000 Ml Iv Solution (07/19/22 15:45) Medications Given in ED Vital Signs/I&O 07/19/22 07/19/22 12:53 16:45 Temp 36.7 36.8 Pulse 57 61 Resp 18 18 B/P (MAP) 119/66 (83) 109/64 Pulse Ox 98 100 O2 Delivery Room Air Room Air 07/20/22 00:00 Intake Total 500 ml Balance 500 ml Progress Progress Note : Progress Note COMPLETELY OBESSED WITH AND FIXATED ON WANTING OUT OF HERE AND GO HOME SO HE CAN WATCH [employer] BASKETBALL GAME TODAY AT 4:00. HE REPEATS THIS A MULTITUDE OF TIMES DURING ER STAY. HE REPEATEDLY STATES THAT HE IS NOT STAYING IN THE HOSPITAL, THROUGHOUT ENTIRE ER STAY. HE ALSO REPEATEDLY STATES THAT HE IS "STARVING TO " AND WANTS SOMETHING TO EAT THROUGHOUT ER STAY--SPECIFICALLY WANTS A STEAK. HE VOICES NO PHYSICAL COMPLAINTS AT ANY TIME DURING ER STAY GIVEN IV FLUIDS BP REMAINS > 100 SYSTOLIC. PT STATES HIS BP IS NORMALLY IN THE 130'S SYSTOLIC REPEAT EKG IS UNCHANGED AND REPEAT TROPONIN IS NEGATIVE PT HAS NO COMPLAINTS OF ANY KIND FOR ENTIRE ER STAY PT IS VERY ANXIOUS TO GO HOME VITALS ARE STABLE REVIEWED ALL TEST RESULTS WITH PT AND FAMILY MEMBERS DISCUSSED ANTICIPATED COURSE, NEED FOR FOLLOW UP AND RETURN PRECAUTIONS. Initial ECG Impression Date: Jul 19, 2022 Initial ECG Impression Time: 13:05 Initial ECG Rate: 47 Initial ECG Rhythm: S.Roger Initial ECG Intervals: QT Initial ECG Intervals MI 319 QRS 95 QT/QTC 477/442 Initial ECG Impression: 1st Degree AV Block Comment INTERPRETED BY ME EKG : EKG Time: 15:40 Rate: 55 Rhythm: S.Roger ECG Comparisson: Unchanged Diagnostic Imaging Comments CXR--PER RADIOLOGIST REPORT AT 1324 FINDINGS: Lung volumes are normal. There are patchy airspace opacities in the left perihilar region. No large effusion or pneumothorax is seen, although the left costophrenic angle is incompletely included. The cardiac silhouette is stable in size. Sternotomy wires and a valve prosthesis are noted. IMPRESSION: 1. Airspace opacities in the left perihilar region, may be due to infiltrate or atelectasis/scarring. Reviewed: Reviewed by Me Departure Impression Primary Impression: Chest pain Additional Impressions: Dehydration HX OF CAD WITH CABG AND STENTS History of artificial heart valve Disposition: 01 HOME, SELF-CARE Condition: Improved Departure-Patient Inst. Decision time for Depature: 16:34 Referrals: KEVIN SILVER MD, DANA ARNP (PCP) Primary Care Physician Patient Instructions: Chest Pain, Adult ED, Dehydration, Adult (DC) Add. Discharge Instructions: CONTINUE ALL YOUR MEDICATIONS PRESCRIBED FOLLOW UP WITH DR. SILVER NEXT WEEK FOR FURTHER CARE--CALL ON THURSDAY TO SCHEDULE AN APPOINTMENT RETURN TO ER IF YOUR SYMPTOMS RETURN All discharge instructions reviewed with patient and/or family. Voiced understanding. RUDOLPH OH DO Jul 19, 2022 12:58
[2022-07-19] MEDS ORDERED: ASPIRIN 81 MG CHEW (CHILDREN'S ASA) PO ONE (13:00)
[2022-07-19 13:15] LABS: BASOPHILS % (AUTO) 1 % (0-10); EOSINOPHILS # (AUTO) 0.2 10^3/uL (0.0-0.3); EOSINOPHILS % (AUTO) 2 % (0-10); HEMATOCRIT 30 % (40-54); HEMOGLOBIN 10.3 g/dL (13.3-17.7); LYMPHOCYTES # (AUTO) 1.9 10^3/uL (1.0-4.0); LYMPHOCYTES % (AUTO) 26 % (12-44); MEAN CORPUSCULAR HEMOGLOBIN 35 pg (25-34); MEAN CORPUSCULAR HGB CONC 34 g/dL (32-36); MEAN CORPUSCULAR VOLUME 102 fL (80-99); MEAN PLATELET VOLUME 10.7 fL (9.0-12.2); MONOCYTES # (AUTO) 0.5 10^3/uL (0.0-1.0); MONOCYTES % (AUTO) 6 % (0-12); NEUTROPHILS # (AUTO) 4.6 10^3/uL (1.8-7.8); NEUTROPHILS % (AUTO) 64 % (42-75); PLATELET COUNT 139 10^3/uL (130-400); WHITE BLOOD COUNT 7.1 10^3/uL (4.3-11.0)
--- NOTE | 2022-07-19 13:21 | Diagnostic Imaging Report ---
HISTORY: Chest pain COMPARISON: None TECHNIQUE: Frontal view chest FINDINGS: Lung volumes are normal. There are patchy airspace opacities in the left perihilar region. No large effusion or pneumothorax is seen, although the left costophrenic angle is incompletely included. The cardiac silhouette is stable in size. Sternotomy wires and a valve prosthesis are noted. IMPRESSION: 1. Airspace opacities in the left perihilar region, may be due to infiltrate or atelectasis/scarring. Dictated by: Dictated on workstation # [id number]
[2022-07-19 13:30] LABS: ALBUMIN 3.8 GM/DL (3.2-4.5); POTASSIUM 4.7 MMOL/L (3.6-5.0)
[2022-07-19 13:32] LABS: CALCIUM 8.6 MG/DL (8.5-10.1)
[2022-07-19 13:33] LABS: TOTAL PROTEIN 6.5 GM/DL (6.4-8.2)
[2022-07-19 13:35] LABS: BILIRUBIN,TOTAL 0.7 MG/DL (0.1-1.0)
[2022-07-19 13:36] LABS: CREATININE SERUM 1.37 MG/DL (0.60-1.30)
[2022-07-19 13:38] LABS: INR 1.5 (0.8-1.4); PROTHROMBIN TIME PATIENT 18.4 SEC (12.2-14.7)
[2022-07-19 13:48] LABS: CREATINE KINASE MB 0.8 NG/ML (<6.6)
[2022-07-19] MEDS ORDERED: IOHEXOL 350 MG/ML 100 ML (OMNIPAQUE 350) VIAL IV ONE (14:15)
[2022-07-19] MEDS ORDERED: LACTATED RINGERS 1,000 ML IV ONE ×2 (14:15→15:45)
[2022-07-19] MEDS ORDERED: NS 100 ML (IVPB) BAG IV ONE (14:15)
--- NOTE | 2022-07-19 14:46 | Diagnostic Imaging Report ---
EXAM: CTA chest, abdomen and pelvis TECHNIQUE: Thin axial sections through the chest, abdomen and pelvis are obtained following intravenous contrast bolus. Multiplanar MIP images were reconstructed and reviewed. All CT scans use one or more of the following dose optimizing techniques: automated exposure control, MA and/or KvP adjustment based on patient size and exam type or iterative reconstruction. DATE: July 19, 2022. INDICATION: 81-year-old male, chest pressure and dizziness. Abdominal pain. COMPARISON: CT abdomen and pelvis without contrast December 10, 2021. FINDINGS: There is a 4 mm noncalcified right upper lobe pulmonary nodule on axial image 62. There is a calcified left upper lobe granuloma and adjacent scarring. There are upper lobe predominant findings of emphysema. There is mild scarring and/or atelectasis in the right lower lobe. There is a 2 mm calcified right lower lobe granuloma. There is no pleural effusion. There is no pneumothorax. The more central airways are patent. There is no identified pulmonary embolus. The main pulmonary artery diameter is within normal limits. There are coronary artery calcifications and additional areas of atherosclerotic disease. There is aortic valve hardware. There are calcified left hilar and mediastinal lymph nodes consistent with sequela of prior granulomatous disease. There is no identified abnormally enlarged noncalcified mediastinal, hilar, or axillary lymph node which meets CT size criteria for adenopathy. There are multilevel degenerative changes of the spine. There are median sternotomy wires. The liver is unremarkable in size and contour. There is mild intrahepatic bile duct dilation. There is no identified focal liver lesion. The main portal vein is grossly patent. The right and left portal veins also appear to be grossly patent. The gallbladder is surgically absent. There is no extrahepatic bile duct dilation. There are pancreatic parenchymal calcifications compatible with chronic pancreatitis. There is no evidence of acute pancreatitis. There is significant volume loss in the absence of the distal aspect of the pancreatic body and pancreatic tail. The spleen is within normal limits in size. The adrenal glands are unremarkable. Unremarkable appearance of the renal parenchyma. The urinary collecting systems are not distended. There is no identified renal or ureteral stone. There are pelvic calcifications compatible with phleboliths. There is mild diffuse urinary bladder wall thickening which may relate to cystitis and/or chronic outlet obstruction. There is a large volume colonic stool. There is no free intraperitoneal air. There is no drainable fluid collection. There is no free fluid in the abdomen or pelvis. There is a small hiatal hernia. There is aneurysmal dilation of the infrarenal abdominal aorta which measures up to 3.4 x 3.2 cm in diameter. There is no identified acute bony abnormality. IMPRESSION: 1. No identified pulmonary embolus or other acute cardiopulmonary abnormality. 2. Infrarenal abdominal aortic aneurysm. 3. Large volume colonic stool. 4. Mild diffuse urinary bladder wall thickening which may relate to cystitis and/or chronic outlet obstruction. Dictated by: Dictated on workstation # [id number]
[2022-07-19 15:05] LABS: BILIRUBIN,URINE NEGATIVE (NEGATIVE); CLARITY,URINE CLEAR; COLOR,URINE ORANGE; GLUCOSE, URINE (UA) NEGATIVE (NEGATIVE); KETONES,URINE NEGATIVE (NEGATIVE); LEUKOCYTE ESTERASE ,URINE TRACE (NEGATIVE); NITRITE,URINE NEGATIVE (NEGATIVE); PH,URINE 7.5 (5-9); PROTEIN,URINE 1+ (NEGATIVE)
[2022-07-19 15:14] LABS: BACTERIA,URINE TRACE /HPF; RBC,URINE RARE /HPF; SQUAMOUS EPITHELIAL CELL,UR RARE /HPF
[2022-07-19 15:19] LABS: AMPHETAMINE SCREEN, URINE NEGATIVE (NEGATIVE); BARBITURATE SCREEN URINE NEGATIVE (NEGATIVE); BENZODIAZEPINES SCREEN URINE NEGATIVE (NEGATIVE); CANNABINOID SCREEN, URINE POSITIVE (NEGATIVE); COCAINE SCREEN URINE NEGATIVE (NEGATIVE); METHADONE STAT NEGATIVE (NEGATIVE); OPIATE SCREEN URINE NEGATIVE (NEGATIVE); OXYCODONE STAT NEGATIVE (NEGATIVE); PROPOXYPHENE STAT NEGATIVE (NEGATIVE); TRICYCLIC ANTIDEPRESSANTS SCRE NEGATIVE (NEGATIVE)
[2022-07-19 16:45] VITALS: BP 109/64
== END 2022-07-19 16:45 | disposition home or self-care (01) ==
LOC: EDUNIT# 12:51 → ER 12:52
DX: R07.89 Other chest pain (principal); E86.0 Dehydration; K43.9 Ventral hernia without obstruction or gangrene; F17.210 Nicotine dependence, cigarettes, uncomplicated; I35.0 Nonrheumatic aortic (valve) stenosis; I25.2 Old myocardial infarction; I10 Essential (primary) hypertension; Z95.1 Presence of aortocoronary bypass graft; Z95.2 Presence of prosthetic heart valve; Z79.82 Long term (current) use of aspirin; Z79.01 Long term (current) use of anticoagulants; Z98.890 Other specified postprocedural states
CPT/HCPCS: 36415; 71045; 71275; 74177; 80053; 80306; 80320; 81000; 82150; 82550; 82553; 83690; 83735; 83874; 83880; 84484; 85025; 85379; 85610; 85730; 93005; 93041

== ENCOUNTER → 2022-08-12 | Outpatient (CLI) | payer OTHER | LOC: CARD 14:30 | PROVIDERS: ATTEND Internal Medicine Cardiovascular Disease | DX: I34.0 Nonrheumatic mitral (valve) insufficiency (principal); I25.3 Aneurysm of heart; I10 Essential (primary) hypertension; Z95.2 Presence of prosthetic heart valve | CPT/HCPCS: 93306 ==

== ENCOUNTER → 2022-09-08 | Outpatient (CLI) | payer OTHER ==
--- NOTE | 2022-09-08 13:31 | Diagnostic Imaging Report ---
INDICATION: ROUTINE CHECK history of abdominal aortic aneurysm. COMPARISON: CT dated 07/19/2022 TECHNIQUE: Limited abdominal sonogram was performed to evaluate the abdominal aorta. FINDINGS: Infrarenal abdominal aortic aneurysm of the distal aorta is again identified. It measures approximately 3.3 x 3.6 cm in maximal axial dimension. Aneurysm extends approximately 6.2 cm in length. Proximal aorta measures 2.6 x 2.1 cm and the mid aorta measures 3 x 3.2 cm. The aortic bifurcation is unremarkable. The proximal portions of the right and left common iliac arteries are unremarkable. There is no ascites. IMPRESSION: 1. Infrarenal abdominal aortic aneurysm as above. Dictated by: Dictated on workstation # [id number]
== END ==
LOC: RAD 08:31
PROVIDERS: ATTEND Nurse Practitioner
DX: I71.43 Infrarenal abdominal aortic aneurysm, without rupture (principal)
CPT/HCPCS: 76775

== ENCOUNTER → 2022-09-09 | Outpatient (CLI) | payer OTHER ==
--- NOTE | 2022-09-09 17:32 | Diagnostic Imaging Report ---
EXAMINATION: CT chest without contrast. TECHNIQUE: Multiple contiguous axial images were obtained through the chest without the use of intravenous contrast. All CT scans use one or more of the following dose optimizing techniques: automated exposure control, MA and/or KvP adjustment based on patient size and exam type or iterative reconstruction. HISTORY: Lung nodule COMPARISON: 07/19/2022 FINDINGS: There is no edema or pneumonia. There is a tiny left pleural effusion. No pneumothorax. A 3 mm right upper lobe nodule is unchanged (series 3, image 71). There is mild nonspecific fibrosis. There is an area of scarring in the left upper lobe. No new nodule. There is no axillary or supraclavicular lymphadenopathy. There is no mediastinal lymphadenopathy. Aortic valve has been replaced. There has been coronary artery bypass grafting. Heart size is normal. There are severe coronary artery calcifications. No pericardial effusion. Aorta is normal in caliber. Limited views of the upper abdomen show changes of cholecystectomy. There are no suspicious osseus lesions. IMPRESSION: 1. Unchanged right upper lobe nodule. Per Fleischner guidelines, follow-up should be at 12 months. Dictated by: Dictated on workstation # [id number]
== END ==
LOC: RAD 10:47
PROVIDERS: ATTEND Family Medicine
DX: R91.1 Solitary pulmonary nodule (principal)
CPT/HCPCS: 71250